=== PATIENT | male | born 1950 | race Caucasian/White ===

== ENCOUNTER 2018-05-22 04:36 | Inpatient (IN) ==
[2018-05-16 15:29] LABS: Appearance,Urine CLEAR; Bilirubin,Urine NEG (NEG); Color,Urine STRAW; Glucose,Urine (UA) NEGATIVE (NEG); Leukocyte Esterase,Urine NEG /uL (NEG); Protein,Urine NEG (NEG); Urine Blood NEG mg/dL (<0.03); Urobilinogen,Urine NEG (NEG)
[2018-05-16 16:14] LABS: Blood Urea Nitrogen 10 mg/dl (8-23)
[2018-05-16 16:41] LABS: Basophils # (Auto) 0 K/mcL (0.0-0.3); Basophils % (Auto) 0.4 % (0.0-2.0); Eosinophils # (Auto) 0.3 K/mcL (0.0-0.7); Eosinophils % (Auto) 2.7 % (0.0-7.0); Granulocytes % (Auto) 54.2 % (38.0-78.0); Lymphocytes # (Auto) 3.3 K/mcL (1.5-4.8); Mean Cell Volume 93.7 fL (80.0-100.0); Mean Corpuscular HGB Conc 33.3 g/dL (31.0-36.0); Mean Corpuscular Hemoglobin 31.2 pg (26.0-34.0); Monocytes # (Auto) 0.6 K/mcL (0.1-0.9); Monocytes % (Auto) 6.7 % (1.0-12.0); Platelet Count 280 K/mcL (140-440); RBC 4.79 M/mcL (4.50-5.90); Red Cell Distribution Width 13.9 % (11.5-14.5)
[2018-05-22] MEDS ORDERED: oxyCODONE 10 MG TAB.ER.12H PO SCH (06:00)
[2018-05-22] MEDS ORDERED: PREGABALIN 75 MG CAPSULE PO SCH (06:00)
[2018-05-22] MEDS ORDERED: ceFAZolin 1 GM VIAL IV SCH (06:00)
[2018-05-22] MEDS ORDERED: CELECOXIB 200 MG CAPSULE PO SCH (06:00)
[2018-05-22] MEDS ORDERED: HEPARIN 20,000 UNIT/ML VIAL IR ONE (06:54)
[2018-05-22] MEDS ORDERED: DEXAMETHASONE 10 MG/ML VIAL IV ONE (07:55)
[2018-05-22] MEDS ORDERED: PROPOFOL 200 MG/20 ML VIAL IV ONE (07:55)
[2018-05-22] MEDS ORDERED: TRANEXAMIC ACID 1,000 MG/10 ML VIAL IV ONE ×2 (07:55→09:06)
[2018-05-22] MEDS ORDERED: ONDANSETRON 4 MG/2 ML VIAL IV ONE (07:55)
[2018-05-22] MEDS ORDERED: ePHEDrine 50 MG/ML AMPUL IV ONE (07:55)
[2018-05-22] MEDS ORDERED: LIDOCAINE HCL/PF 100 MG/5 ML SYRINGE IV ONE (07:55)
[2018-05-22] MEDS ORDERED: MIDAZOLAM 2 MG/2 ML VIAL IV ONE (07:55)
[2018-05-22] MEDS ORDERED: GLYCOPYRROLATE 0.2 MG/ML VIAL IV ONE (07:55)
[2018-05-22] MEDS ORDERED: KETAMINE 100 MG/ML ML IV ONE (07:55)
[2018-05-22] MEDS ORDERED: BISACODYL 10 MG SUPP.RECT PR PRN (09:06)
[2018-05-22] MEDS ORDERED: KETOROLAC 30 MG/ML VIAL IV PRN ×2 (09:06→09:07)
[2018-05-22] MEDS ORDERED: BENZOCAINE/MENTHOL 1 LOZENGE PO PRN ×2 (09:06→09:07)
[2018-05-22] MEDS ORDERED: FLEETS ADULT ENEMA PR PRN (09:06)
[2018-05-22] MEDS ORDERED: ONDANSETRON 4 MG/2 ML VIAL IV PRN ×2 (09:06→09:07)
[2018-05-22] MEDS ORDERED: MAGNESIUM HYDROXIDE 30 ML ORAL.SUSP PO PRN (09:06)
[2018-05-22] MEDS ORDERED: POLYETHYLENE GLYCOL 3350 17 GM PACKET PO PRN (09:06)
--- NOTE | 2018-05-22 09:06 | Brief Operative Note ---
Date of procedure: 05/22/18 Pre-op diagnosis: R hip severe DJD Post-op diagnosis: same Procedure: Right anterior total hip arthroplasty Grafts/Implants: Yes (Depuy 8 std Actis, +1.5 36 delta head, 52 pinnacle cup, neutral altrx liner) Anesthesia: spinal, GLMA Findings: severe arthritis Complications: none Surgeon: Iglesia Bryant Mine Safety Engineer: Jacobo Stoddard Estimated blood loss (cc): 150 Specimens Removed/Pathology: none sent Condition: stable Disposition: PACU
[2018-05-22] MEDS ORDERED: METHOCARBAMOL 1,000 MG/10 ML VIAL IV PRN (09:07)
[2018-05-22] MEDS ORDERED: MEPERIDINE 25 MG/ML SYRINGE IV PRN (09:07)
[2018-05-22] MEDS ORDERED: HYDROmorphone 2 MG/ML VIAL IV PRN (09:07)
[2018-05-22] MEDS ORDERED: NALOXONE HCL 0.4 MG/ML VIAL IV PRN (09:07)
[2018-05-22] MEDS ORDERED: ACETAMINOPHEN 1,000 MG/100 ML BOTTLE IV ONE (09:07)
[2018-05-22] MEDS ORDERED: LACTATED RINGERS 250 ML IV PRN (09:07)
[2018-05-22] MEDS ORDERED: FLUMAZENIL 0.1 MG/ML ML IV PRN (09:07)
[2018-05-22] MEDS ORDERED: fentaNYL 100 MCG/2 ML VIAL IV PRN (09:07)
[2018-05-22] MEDS ORDERED: IPRATROPIUM/ALBUTEROL 3 ML AMPUL.NEB NEB PRN (09:07)
[2018-05-22] MEDS ORDERED: LACTATED RINGERS 1,000 ML IV SCH (09:15)
--- NOTE | 2018-05-22 09:36 | Operative Note ---
DATE OF OPERATION: 05/22/2018 PREOPERATIVE DIAGNOSIS: Right hip severe osteoarthritis. POSTOPERATIVE DIAGNOSIS: Right hip severe osteoarthritis. PROCEDURE PERFORMED: Right anterior approach total hip arthroplasty placing a DePuy Actis size 8 standard offset femoral stem and a +1.5, 36 mm delta ceramic head ball with a 52 Dinosaur cup and a neutral AltrX liner. SURGEON: Iglesia Bryant M.D. FISH DRESSING MACHINE FEEDER: Sea Stoddard PA-C. ANESTHESIA: Spinal plus general. DRAINS: None. SPECIMENS: Femoral head which was discarded. BLOOD LOSS: 150 mL. COMPLICATIONS: None. POSTOPERATIVE CONDITION: Stable. INDICATIONS FOR SURGERY: This is a 67-year-old male with progressive worsening right hip pain. Radiographs showed severe [id number] osteoarthritis. FINDINGS AT SURGERY: As above. Post implantation showed good component position with relatively equal leg lengths. PROCEDURE IN DETAIL: The patient had been seen preoperatively. Informed consent had been obtained after discussion of risks and benefits of surgery. Risks including, but not limited to, bleeding, possibly requiring transfusion; infection, possibly requiring implant removal and prolonged IV antibiotics; injury to nerves, blood vessels and other surrounding structures; anesthetic risks; incomplete or no resolution of symptoms; leg length discrepancy; dislocation; fracture; DVT and pulmonary embolus risks; and the possibility of needing further revision surgery. He understood and wished to proceed. Correct operative site was marked and then patient was given spinal anesthesia. He was then taken to the operating room and LMA general given. He was positioned on the fracture table and then the right hip and groin were carefully prepped and draped in normal sterile fashion, and a time-out was performed verifying patient name, operative site, and plan. A standard anterior approach incision was made with a scalpel through skin and subcutaneous tissue. Hemostasis was obtained with Bovie cautery. Irrisept was irrigated and then a ring retractor was placed. Tensor fascia was incised in line with muscle fibers and then careful blunt dissection taken medial to the muscle belly. Blunt cobra retractors were placed on the superior and inferior neck and then an anterior capsulectomy performed, and the circumflex vessels were coagulated and cut along with the vastus fascia split distally. Corkscrew was placed in the femoral head. Osteotome was used under fluoro to identify our approximate neck cut. We then used an oscillating tip saw to perform our osteotomy, and the femoral head was removed. Acetabulum was exposed and labrum excised circumferentially as well as soft tissue from the floor. We started reaming with a 47 reamer, directly medializing to the tear drop and then increased up to a 51 reamer. We trialed a 51 and did get some press fit. A 3-hole 52 Dinosaur cup was opened. The acetabulum was irrigated with Irrisept, after a minute pulse lavaged with saline, and then using the [id number] we impacted the cup at approximately 40 degrees of inclination and 25 degrees of anteversion. We did get good press-fit, so we went ahead and placed a center hole cover, and a neutral AltrX liner was carefully aligned and impacted. There were no real significant overhanging osteophytes. We went ahead and exposed the proximal femur. Capsule releases were taken out to the tip of the trochanter and along the posterior neck. A box osteotome and awl were used to start our canal entry and then rongeur and rasp to lateralize. We then sequentially broached with the [id number] up to a size 7. This seated below our neck cut. We went ahead and calcar planed. A +1.5 standard offset neck and head trial were placed. Hip was reduced without excessive tension. AP pelvis was verified neutral rotation, and then we took x-rays of the nonoperative and operative hips. Overlay revealed symmetrical leg lengths and offset. We went ahead and redislocated. I did impact with the [id number] the size 7, which went down even below our neck cut, so I went up to a size 8. This sat just a millimeter or so above our neck cut. We opened an 8 standard offset Actis stem. Femoral canal was irrigated with Irrisept, after a minute pulse lavaged with saline. We then impacted the stem with the [id number] and it did seat all the way down on our neck cut. A +1.5 head ball was opened. The stem was carefully cleaned and dried and the head ball impacted with the [id number]. We then reduced the hip. Final fluoro images were taken and saved. We irrigated with Irrisept, after a minute pulse lavaged with saline, and then tensor fascia was closed with two running #1 Vicryl stitches, one running proximal and one running distal. Ring retractor was removed and Irrisept was irrigated again, after a minute pulse lavage, and then fat was tacked to fascia with Vicryl and 2-0 Monocryl for subcutaneous and berlin for skin. Xeroform and sterile dressing were applied. The patient was awakened, extubated, and transferred to recovery in stable condition. KORIN:star Job ID: [id number] Doc ID: [id number] Iglesia Bryant MD
[2018-05-22] MEDS: 0.9 % SODIUM CHLORIDE 1,000 ML IV SCH ×3 (10:06→21:41)
--- NOTE | 2018-05-22 11:53 | XRay Report ---
CLINICAL INFORMATION: Postop total hip prostheses COMPARISON: None. FINDINGS: The right total hip prostheses is anatomically aligned. There is minimal degenerative change both SI joints. Left hip is normal. No osseous abnormality. Soft tissue swelling over the surgical site - as expected IMPRESSION: Negative Interpreted and Authenticated by: Leon Martines 05/22/18
--- NOTE | 2018-05-22 12:19 | XRay Report ---
CLINICAL INFORMATION: Right total hip prosthetic placement - anterior approach COMPARISON: None. FINDINGS: Multiple digital images from an of the OR show right total hip prostheses in various stages of placement. Final film shows prostheses in anatomic alignment without osseous abnormality IMPRESSION: Negative Interpreted and Authenticated by: Leon Martines 05/22/18
[2018-05-22] MEDS: 0.9 % SODIUM CHLORIDE 10 ML SYRINGE IV SCH ×2 (14:03→23:15)
[2018-05-22] MEDS: ceFAZolin 1 GM VIAL IV SCH ×2 (14:34→23:15)
[2018-05-22] MEDS: HYDROCODONE/APAP 7.5/325MG TABLET PO PRN (20:55)
[2018-05-22] MEDS: ASPIRIN 325 MG ENTERIC COATED TABLET PO SCH (20:55)
[2018-05-22] MEDS: DOCUSATE SODIUM 100 MG CAPSULE PO SCH (20:56)
[2018-05-22] MEDS: SENNOSIDES 1 TABLET PO SCH (20:56)
[2018-05-23] MEDS: HYDROCODONE/APAP 7.5/325MG TABLET PO PRN ×4 (01:56→19:36)
[2018-05-23] MEDS: 0.9 % SODIUM CHLORIDE 1,000 ML IV SCH (05:45)
[2018-05-23] MEDS: 0.9 % SODIUM CHLORIDE 10 ML SYRINGE IV SCH ×3 (05:46→20:58)
--- NOTE | 2018-05-23 07:39 | Discharge Summary ---
Providers - Providers Patient information: Note initiated : 05/23/18 at 7:36 am Service Date, if different from initiated Date: [] Patient: Tigre Maldonado 67 y/o M admitted on 05/22/18 for Right Anterior Total Hip Arthroplasty . Chief Complaint: [] Discharge date: 05/23/18 Hospitalization Hospital course: Pt was admitted for a total hip arthroplasty. Pt was admitted on the day of the procedure and discharged on post-op day 1. Pt will take ASA for DVT prophylaxis. Will attend out-pt PT. f/u at [facility] in 2 weeks. Discharge diagnosis: R hip OA Exam - Exam Clean and dry: Yes Weight bearing status: as tolerated Ortho Discharge - YANELI - Patient Instructions Diet: Regular Diet Activity: activity as tolerated Total Hip Protocol: Follow activity instructions as provided by Physical Therapy. Dressing Care: May shower in 2 days - Follow Up Plan Follow Up Appointments: Jacobo Stoddard PA-C [Physician [facility]] - 06/06/18 10:10 am Disposition: Home, Self-Care Prognosis: Good Rehab Potential: Good Overall status at discharge: patient is progressing back to baseline - Orders For Discharge Prescriptions: Aspirin [Ecotrin] 325 mg PO BID #60 tab.ec Hydrocodone/APAP 7.5/325Mg [Dumont 7.5-325Mg] 1 - 2 tab PO Q4HP PRN #90 tab PRN Reason: Pain Level 3-6 Pending Studies Resuscitation Status Full Code Diet Regular Diet Start SunMay 22 907 Hydrocodone Bitart/Acetaminophen (Dumont 7.5/325mg) 0 tab PO Q4HP PRN PRN Reason: PAIN LEVEL 3-6 Last Admin: 05/23/18 01:56 Dose: 2 tab Admin: 05/22/18 20:55 Dose: 1 tab Aspirin (Ecotrin) 325 mg PO BID [facility] Last Admin: 05/22/18 20:55 Dose: 325 mg Docusate Sodium (Colace) 100 mg PO BID [facility] Last Admin: 05/22/18 20:56 Dose: 100 mg Ketorolac Tromethamine (Toradol) 30 mg IV Q6HP PRN PRN Reason: Pain Stop: 05/24/18 09:08 Last Admin: 05/22/18 20:52 Dose: 30 mg Morphine Sulfate (Morphine) 0 mg IV Q1HP PRN PRN Reason: PAIN LEVEL > 6 Last Admin: 05/22/18 23:14 Dose: 4 mg Senna (Senokot) 2 tab PO HS ZACHARY Last Admin: 05/22/18 20:56 Dose: 2 tab Sodium Chloride (Saline Flush) 10 ml IV Q8 ZACHARY Last Admin: 05/23/18 05:46 Dose: 10 ml Admin: 05/22/18 23:15 Dose: 10 ml Admin: 05/22/18 14:03 Dose: Not Given Shift Summary 05/23/18 04:50 Shift Summary by Chuck Boston Pt. alert and oriented x4. No n/v. Bladder scanned > 999 (1800 mls) @ 2350; Connell placed - output 1750; Pt said felt much better; Dumont 7.5 1 tab @ 5 & 2 tabs @ 0156; Up in RM x3 with FWW; Initialized on 05/23/18 04:50 - END OF NOTE
[2018-05-23] MEDS: ASPIRIN 325 MG ENTERIC COATED TABLET PO SCH ×2 (08:45→20:49)
[2018-05-23] MEDS: DOCUSATE SODIUM 100 MG CAPSULE PO SCH ×2 (08:45→20:49)
[2018-05-23] MEDS: LOSARTAN 50 MG TABLET PO SCH (08:45)
[2018-05-23] MEDS: HYDROCHLOROTHIAZIDE 12.5 MG CAPSULE PO SCH (08:46)
[2018-05-23] MEDS ORDERED: LOSARTAN/HCTZ 100/25 TABLET PO SCH (09:00)
[2018-05-23] MEDS ORDERED: PNEUMOCOCCAL 23-VAL P-SAC VAC 0.5 ML VIAL IM ONE (10:00)
[2018-05-23] MEDS: TAMSULOSIN 0.4 MG CAPSULE PO SCH ×2 (14:59→20:49)
[2018-05-23] MEDS: SENNOSIDES 1 TABLET PO SCH (20:49)
[2018-05-24] MEDS: HYDROCODONE/APAP 7.5/325MG TABLET PO PRN ×2 (02:13→07:00)
[2018-05-24] MEDS: 0.9 % SODIUM CHLORIDE 10 ML SYRINGE IV SCH ×2 (04:41→09:39)
[2018-05-24] MEDS: DOCUSATE SODIUM 100 MG CAPSULE PO SCH (09:33)
[2018-05-24] MEDS: HYDROCHLOROTHIAZIDE 12.5 MG CAPSULE PO SCH (09:33)
[2018-05-24] MEDS: ASPIRIN 325 MG ENTERIC COATED TABLET PO SCH (09:34)
[2018-05-24] MEDS: LOSARTAN 50 MG TABLET PO SCH (09:34)
== END 2018-05-24 10:55 | disposition home or self-care (01) | DRG 470 ==
LOC: MEDSUR 04:36
PROVIDERS: ADMIT Orthopaedic Surgery; ATTEND Orthopaedic Surgery

== ENCOUNTER 2022-02-17 16:30 | Inpatient (IN) ==
[2022-02-17] MEDS ORDERED: IOPAMIDOL 100 ML BOTTLE IV ONE (16:31)
--- NOTE | 2022-02-17 16:51 | Emergency Department Note ---
HPI <Valery Alvarez PA-C - Last Filed: 02/17/22 21:10> General Chief complaint: Weakness Stated complaint: Weakness Time Seen by Provider: 02/17/22 16:35 Source: patient Mode of arrival: ambulatory Limitations: no limitations History of Present Illness HPI Narrative: 71-year-old male with history of NICM HFrEF 23% presents from his PCPs office for complaints of headache, nausea but no vomiting, shortness of breath, and hypotension with presenting BP of 87/60 mmHg. Symptom onset approximately 2 days. Patient denies fever/chills/sweats. He describes profound weakness that has had gradual onset over 1 month. He now is feeling exertional shortness of breath with activity. Has had some lightheadedness. States he had dark melanotic stools about 2 weeks ago x2, but this has not returned. No history of GI bleeds. Recently stools have been without hematochezia or melena. He is not on blood thinners. Patient states he has had difficulty urinating for the last 2 days. Denies a history of urinary retention, but states he did see urologist in the past for this. He is not on medications. He denies hematuria or dysuria. No previous history of kidney stones. Does note some bladder pain. States that he did feel some pain in the suprapubic region 2 days ago when his symptoms started. Denies CVA tenderness. Related Data Home Medications Medication Instructions Recorded Confirmed multivitamin [Multiple Vitamins] 1 tab PO QAM 08/07/17 02/18/22 [place]'s wort 300 mg tablet 300 mg PO BID tab 05/25/21 02/18/22 excedrin 1 tab PO PRN PRN 06/24/21 02/18/22 ibuprofen 200 mg PO PRN PRN 06/24/21 02/18/22 losartan 25 mg tablet 25 mg PO QDAY 08/23/21 02/18/22 metoprolol tartrate 25 mg tablet 12.5 mg PO .qod tab 12/21/21 02/18/22 Allergies Allergy/AdvReac Type Severity Reaction Status Date / Time methocarbamol AdvReac Severe Nausea Verified 02/18/22 00:07 omeprazole AdvReac Severe Nausea/vomi Verified 02/18/22 00:07 ting topiramate AdvReac Nausea Verified 02/18/22 00:07 Review of Systems <Valery Alvarez PA-C - Last Filed: 02/17/22 21:10> ROS ROS Narrative: Narrative: All systems ED: reviewed and negative except as stated. 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 (Acute) CHF (NYHA class III, ACC/AHA stage C) (Acute) Nausea (Acute) Hypotension (Acute) Silent aspiration (Chronic) Obstructive sleep apnea (Chronic) COPD (chronic obstructive pulmonary disease) (Chronic) Weight loss of more than 10% body weight (Acute) Chronic bronchitis (Chronic) Chronic pain (Chronic) Pain in right hip (Chronic) Thoracic back pain (Chronic) Upper abdominal pain (Chronic) Diarrhea (Chronic) Headache (Chronic) Cough (Chronic) Malaise and fatigue (Chronic) Duodenitis (Chronic) Blurred vision, bilateral (Chronic) Elevated white blood cell count (Chronic) Degenerative disc disease, cervical (Chronic) Muscle spasms of neck (Chronic) Enlarged heart (Chronic) Loss of appetite (Chronic) Weight loss, unintentional (Chronic) History of COVID-19 (Chronic) Witnessed apneic spells (Chronic) Hypersomnia (Chronic) History of CT scan of abdomen (Chronic 05/24/17) Body mass index 26.0-26.9, adult (Chronic) Smoker (Chronic) Shortness of breath on exertion (Chronic) Shortness of breath at rest (Chronic) Sore throat (Chronic) Nasal congestion (Chronic) Persistent infection (Chronic) Low back pain with radiation (Chronic) Lumbar radiculopathy (Chronic) Sinus congestion (Chronic) Hyponatremia (Chronic) Acute bronchitis with bronchospasm (Chronic) MCC use of drug (Chronic) DDD (degenerative disc disease), lumbosacral (Chronic) Compression fracture of spine (Chronic) Acquired renal cyst (Chronic) Spondylosis of lumbar spine (Chronic) Osteoporosis (Chronic) Balance problems (Chronic) Generalized headaches (Chronic) Dizziness (Chronic) Indigestion (Chronic) Cough (Chronic) Lightheadedness (Chronic) GERD (gastroesophageal reflux disease) (Chronic) Fatigue (Chronic) Appendicitis (Chronic) Left foot pain (Chronic) Tetanus (Chronic) Ankle fracture (Chronic) De Quervain's tenosynovitis, right (Chronic) Hypertension (Chronic) Back pain (Chronic) Bladder distention (Chronic) Medical History Acquired renal cyst Acute bronchitis with bronchospasm Ankle fracture 2005 Appendicitis Back pain Balance problems Bladder distention Blurred vision, bilateral Body mass index 26.0-26.9, adult CHF (NYHA class III, ACC/AHA stage C) Chronic bronchitis Chronic pain 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 History of COVID-[address] scan of abdomen (05/24/17) Hypersomnia Hypertension Hyponatremia mild Hypotension Indigestion Left foot pain Lightheadedness equipment [employer] use of drug Loss of appetite Low back pain with radiation right Lumbar radiculopathy right Malaise and fatigue Muscle spasms of neck Nasal congestion Nausea Nausea and vomiting Nonischemic cardiomyopathy Obstructive sleep apnea Osteoporosis Pain in right hip Persistent infection Shortness of breath at rest Shortness of breath on exertion Silent aspiration Sinus congestion Smoker Sore throat Spondylosis of lumbar spine Tetanus appr 2010 Thoracic back pain Upper abdominal pain Weight loss of more than 10% body weight Weight loss, unintentional Witnessed apneic spells Surgical History History of appendectomy History of foot surgery left History of right hip replacement Family History Father Hypertension Kidney disease Hemophilia Cancer Gout Diabetes Mother Hypertension Kidney disease Cancer Family/Other Coronary artery disease Sibling Diabetes Sibling Gout sibling Kidney disease sibling Other Heart attack Social History Smoking Status: Former smoker Alcohol Intake Frequency: 2+ drinks per day Substance Use: marijuana Exam <Valery Alvarez PA-C - Last Filed: 02/17/22 21:10> Narrative Narrative: General: AOx3, NAD, nontoxic appearing. Pleasant and conversant. HEENT: PERRL, EOMI, normocephalic. Moist mucous membranes. Normal facies and normal dentition. Chest: Symmetric, no pain to palpation Respiratory: Lungs clear to auscultation bilaterally. No respiratory distress. Unlabored breathing. Heart: Regular rate and rhythm, no murmurs/clicks/rubs. Abdomen: Non-tender, Non distended, normal bowel tones. No organomegaly. Extremities: Warm and well perfused. No edema. DP 2+ bilaterally. No venous stasis. Neuro: No focal deficits. Cranial nerves II-XII grossly normal. Skin: Warm dry, no rashes or lesions, no cyanosis. Psych: Normal mood and affect Heme/Lymph: No abnormal bruising General Limitations: no limitations Course <Valery Alvarez PA-C - Last Filed: 02/17/22 21:10> Course Course Narrative: 71-year-old male presents with 1 month of weakness, worse in the last 2 days and now with associated shortness of breath. Reevaluation(s) Reevaluation #1: Basic labs, EKG, chest x-ray, D-dimer, [id number] troponin Patient was unable to completely void. Post residual void was noted to be 750 cc. Reevaluation #2: EKG shows atrial fibrillation with a rate of 61 bpm. There are no acute ST deviations to suggest ischemia. [id number] troponin is undetectable Chest x-ray without infiltrates or pulmonary edema. Cardiomegaly is noted. CBC with leukocytosis of 16,900. Prostate antigen is 9, mildly elevated Reevaluation #3: Discussed with the patient placing a Connell catheter which she is amenable to. We will start him on Flomax prior to discharge him follow-up with urology. Urinalysis shows calcium oxalate crystals, no blood, no infectious markers. Given his symptoms, urinary retention and elevated white blood cell count will order CT of the abdomen and pelvis without contrast to rule out obstructive urinary process. D-dimer is elevated at 1.88, have sent the patient for CTA of the chest to rule out PE Vital Signs Vital signs: Vital Signs Temperature 37.3 C H 02/17/22 16:31 Pulse Rate 71 02/17/22 16:31 Respiratory Rate 22 02/17/22 16:31 Blood Pressure 99/67 02/17/22 16:31 Pulse Oximetry (%) 97 02/17/22 16:31 Temperature 37.3 C H 02/17/22 16:31 Pulse Rate 67 02/17/22 22:31 Respiratory Rate 19 02/17/22 22:31 Blood Pressure 97/74 02/17/22 22:31 Pulse Oximetry (%) 98 02/17/22 22:31 MDM <Valery Alvarez PA-C - Last Filed: 02/17/22 21:10> MDM Narrative Medical decision making narrative: Urinary retention Shortness of breath with elevated D-dimer Weakness Hyponatremia Nausea Patient continues to have nausea in spite of antiemetics. Urinary retention was addressed with a Connell catheter placement. Patient is hyponatremic with ongoing weakness and I have reached out to the hospitalist for admission. Currently the CTA of the chest and CT of the abdomen pelvis are pending. I signed the patient out to Dr. Coyne at change of shift. Please see his note for further details and plan of care. Lab Data Result diagrams: 02/17/22 18:15 02/17/22 18:26 Labs: Lab Results 02/17/22 02/17/22 02/17/22 Range/Units 16:58 16:58 16:58 WBC TNP RBC TNP Hgb TNP Hct TNP MCV TNP MCH TNP MCHC TNP RDW TNP Plt Count TNP MPV TNP Neut % (Auto) TNP Lymph % (Auto) TNP Nicholas % (Auto) TNP Eos % (Auto) TNP Baso % (Auto) TNP Lymph # (Auto) TNP Nicholas # (Auto) TNP Eos # (Auto) TNP Baso # (Auto) TNP Seg Neutrophils % (38-78) % Lymphocytes % (15-49) % Monocytes % (Manual) (1-12) % Eosinophils % (Manual) (0-7) % Absolute Neutrophils TNP Differential Comment TNP Platelet Estimate (Normal) RBC Morphology (Normal) D-Dimer TNP VBG Lactic Acid 1.9 (0.5-2.0) mmol/L Sodium TNP Potassium TNP Chloride TNP Carbon Dioxide TNP Anion Gap TNP BUN TNP Creatinine TNP GFR Calculation TNP Glucose TNP Osmolality (280-300) mOSM/kg Uric Acid (2.5-8.0) mg/dL Calcium TNP Total Bilirubin TNP AST TNP ALT TNP Alkaline Phosphatase TNP NT-Pro-B Natriuret Pep 2886.0 H (<125.0) pg/mL Total Protein TNP Albumin TNP Globulin TNP Albumin/Globulin Ratio TNP Prostate Specific Ag (<6.50) ng/mL Procalcitonin (<0.10) ng/mL Urine Color Urine Appearance (Clear) Urine pH (5.0-9.0) Ur Specific [place] (1.000-1.035) Urine Protein (Negative) mg/dL Urine Glucose (UA) (Negative) mg/dL Urine Ketones (Negative) mg/dL Urine Occult Blood (Negative) mg/dL Urine Nitrate (Negative) Urine Bilirubin (Negative) mg/dL Urine Urobilinogen mg/dL Ur Leukocyte Esterase (Negative) /uL Urine RBC (0-3) /hpf Urine WBC (0-4) /hpf Ur Squamous Epith Cells (0-4) /hpf Calcium Oxalate Crystal (None) /hpf Urine Bacteria (0) /hpf Hyaline Casts (0-2) /lph Urine Mucus (None) /hpf Ur Culture Indicated? Urine Osmolality (80-1000) mOSM/kg Ur Random Sodium mmol/L POC Troponin I 02/17/22 02/17/22 02/17/22 Range/Units 16:58 16:58 16:58 WBC 17.5 H RBC 4.63 Hgb 14.3 Hct 41.3 MCV 89.2 MCH 30.9 MCHC 34.6 RDW 13.5 Plt Count 176 MPV 9.9 Neut % (Auto) Lymph % (Auto) Nicholas % (Auto) Eos % (Auto) Baso % (Auto) Lymph # (Auto) Nicholas # (Auto) Eos # (Auto) Baso # (Auto) Seg Neutrophils % 35 L (38-78) % Lymphocytes % 55 H (15-49) % Monocytes % (Manual) 7 (1-12) % Eosinophils % (Manual) 3 (0-7) % Absolute Neutrophils Differential Comment Platelet Estimate Normal (Normal) RBC Morphology Normal (Normal) D-Dimer VBG Lactic Acid (0.5-2.0) mmol/L Sodium Potassium Chloride Carbon Dioxide Anion Gap BUN Creatinine GFR Calculation Glucose Osmolality (280-300) mOSM/kg Uric Acid (2.5-8.0) mg/dL Calcium Total Bilirubin AST ALT Alkaline Phosphatase NT-Pro-B Natriuret Pep (<125.0) pg/mL Total Protein Albumin Globulin Albumin/Globulin Ratio Prostate Specific Ag 9.30 H (<6.50) ng/mL Procalcitonin 0.54 H (<0.10) ng/mL Urine Color Urine Appearance (Clear) Urine pH (5.0-9.0) Ur Specific [place] (1.000-1.035) Urine Protein (Negative) mg/dL Urine Glucose (UA) (Negative) mg/dL Urine Ketones (Negative) mg/dL Urine Occult Blood (Negative) mg/dL Urine Nitrate (Negative) Urine Bilirubin (Negative) mg/dL Urine Urobilinogen mg/dL Ur Leukocyte Esterase (Negative) /uL Urine RBC (0-3) /hpf Urine WBC (0-4) /hpf Ur Squamous Epith Cells (0-4) /hpf Calcium Oxalate Crystal (None) /hpf Urine Bacteria (0) /hpf Hyaline Casts (0-2) /lph Urine Mucus (None) /hpf Ur Culture Indicated? Urine Osmolality (80-1000) mOSM/kg Ur Random Sodium mmol/L POC Troponin I 02/17/22 02/17/22 02/17/22 Range/Units 17:13 17:32 17:32 WBC RBC Hgb Hct MCV MCH MCHC RDW Plt Count MPV Neut % (Auto) Lymph % (Auto) Nicholas % (Auto) Eos % (Auto) Baso % (Auto) Lymph # (Auto) Nicholas # (Auto) Eos # (Auto) Baso # (Auto) Seg Neutrophils % (38-78) % Lymphocytes % (15-49) % Monocytes % (Manual) (1-12) % Eosinophils % (Manual) (0-7) % Absolute Neutrophils Differential Comment Platelet Estimate (Normal) RBC Morphology (Normal) D-Dimer VBG Lactic Acid (0.5-2.0) mmol/L Sodium Potassium Chloride Carbon Dioxide Anion Gap BUN Creatinine GFR Calculation Glucose Osmolality (280-300) mOSM/kg Uric Acid (2.5-8.0) mg/dL Calcium Total Bilirubin AST ALT Alkaline Phosphatase NT-Pro-B Natriuret Pep (<125.0) pg/mL Total Protein Albumin Globulin Albumin/Globulin Ratio Prostate Specific Ag (<6.50) ng/mL Procalcitonin (<0.10) ng/mL Urine Color Yellow Urine Appearance Hazy A (Clear) Urine pH 5.0 (5.0-9.0) Ur Specific [place] 1.015 (1.000-1.035) Urine Protein Negative (Negative) mg/dL Urine Glucose (UA) Negative (Negative) mg/dL Urine Ketones 5 A (Negative) mg/dL Urine Occult Blood 0.03 (Negative) mg/dL Urine Nitrate Negative (Negative) Urine Bilirubin Negative (Negative) mg/dL Urine Urobilinogen Negative mg/dL Ur Leukocyte Esterase Negative (Negative) /uL Urine RBC 3 (0-3) /hpf Urine WBC 2 (0-4) /hpf Ur Squamous Epith Cells 0 (0-4) /hpf Calcium Oxalate Crystal Few A (None) /hpf Urine Bacteria None (0) /hpf Hyaline Casts 5 H (0-2) /lph Urine Mucus Mod A (None) /hpf Ur Culture Indicated? No Urine Osmolality 597 (80-1000) mOSM/kg Ur Random Sodium 79 mmol/L POC Troponin I 0 02/17/22 02/17/22 02/17/22 Range/Units 17:32 18:15 18:26 WBC 16.3 H RBC 4.67 Hgb 14.5 Hct 40.9 MCV 87.6 MCH 31.0 MCHC 35.5 RDW 13.3 Plt Count 172 MPV 9.5 Neut % (Auto) 33.3 L Lymph % (Auto) 56.1 H Nicholas % (Auto) 9.6 Eos % (Auto) 0.7 Baso % (Auto) 0.3 Lymph # (Auto) 9.16 H Nicholas # (Auto) 1.57 H Eos # (Auto) 0.11 Baso # (Auto) 0.05 Seg Neutrophils % (38-78) % Lymphocytes % (15-49) % Monocytes % (Manual) (1-12) % Eosinophils % (Manual) (0-7) % Absolute Neutrophils 5.44 Differential Comment Platelet Estimate (Normal) RBC Morphology (Normal) D-Dimer VBG Lactic Acid (0.5-2.0) mmol/L Sodium 123 L Potassium 4.1 Chloride 90 L Carbon Dioxide 22 Anion Gap 11.0 BUN 15 Creatinine 0.9 GFR Calculation 85 Glucose 91 Osmolality 261 L (280-300) mOSM/kg Uric Acid 3.7 (2.5-8.0) mg/dL Calcium 8.8 Total Bilirubin 1.5 H AST 21 ALT 15 Alkaline Phosphatase 102 NT-Pro-B Natriuret Pep (<125.0) pg/mL Total Protein 6.5 Albumin 3.5 Globulin 3.0 Albumin/Globulin Ratio 1.2 Prostate Specific Ag (<6.50) ng/mL Procalcitonin (<0.10) ng/mL Urine Color Urine Appearance (Clear) Urine pH (5.0-9.0) Ur Specific [place] (1.000-1.035) Urine Protein (Negative) mg/dL Urine Glucose (UA) (Negative) mg/dL Urine Ketones (Negative) mg/dL Urine Occult Blood (Negative) mg/dL Urine Nitrate (Negative) Urine Bilirubin (Negative) mg/dL Urine Urobilinogen mg/dL Ur Leukocyte Esterase (Negative) /uL Urine RBC (0-3) /hpf Urine WBC (0-4) /hpf Ur Squamous Epith Cells (0-4) /hpf Calcium Oxalate Crystal (None) /hpf Urine Bacteria (0) /hpf Hyaline Casts (0-2) /lph Urine Mucus (None) /hpf Ur Culture Indicated? Urine Osmolality (80-1000) mOSM/kg Ur Random Sodium mmol/L POC Troponin I 02/17/22 Range/Units 18:48 WBC RBC Hgb Hct MCV MCH MCHC RDW Plt Count MPV Neut % (Auto) Lymph % (Auto) Nicholas % (Auto) Eos % (Auto) Baso % (Auto) Lymph # (Auto) Nicholas # (Auto) Eos # (Auto) Baso # (Auto) Seg Neutrophils % (38-78) % Lymphocytes % (15-49) % Monocytes % (Manual) (1-12) % Eosinophils % (Manual) (0-7) % Absolute Neutrophils Differential Comment Platelet Estimate (Normal) RBC Morphology (Normal) D-Dimer 1.88 H VBG Lactic Acid (0.5-2.0) mmol/L Sodium Potassium Chloride Carbon Dioxide Anion Gap BUN Creatinine GFR Calculation Glucose Osmolality (280-300) mOSM/kg Uric Acid (2.5-8.0) mg/dL Calcium Total Bilirubin AST ALT Alkaline Phosphatase NT-Pro-B Natriuret Pep (<125.0) pg/mL Total Protein Albumin Globulin Albumin/Globulin Ratio Prostate Specific Ag (<6.50) ng/mL Procalcitonin (<0.10) ng/mL Urine Color Urine Appearance (Clear) Urine pH (5.0-9.0) Ur Specific [place] (1.000-1.035) Urine Protein (Negative) mg/dL Urine Glucose (UA) (Negative) mg/dL Urine Ketones (Negative) mg/dL Urine Occult Blood (Negative) mg/dL Urine Nitrate (Negative) Urine Bilirubin (Negative) mg/dL Urine Urobilinogen mg/dL Ur Leukocyte Esterase (Negative) /uL Urine RBC (0-3) /hpf Urine WBC (0-4) /hpf Ur Squamous Epith Cells (0-4) /hpf Calcium Oxalate Crystal (None) /hpf Urine Bacteria (0) /hpf Hyaline Casts (0-2) /lph Urine Mucus (None) /hpf Ur Culture Indicated? Urine Osmolality (80-1000) mOSM/kg Ur Random Sodium mmol/L POC Troponin I ED POC Tests ED POC Tests: ALEX - SARS Antigen Negative Discharge Plan Patient/Caregiver Discharge Instructions Pt seen by MANAGER BUSINESS MANAGEMENT/PA only: No Clinical Impression: Acute dyspnea, Hyponatremia, Weakness Patient Disposition: Xfer As Inpt ([facility]) Condition: Fair Discharge Date/Time: 02/17/22 23:02
--- NOTE | 2022-02-17 18:14 | XRay Report ---
HISTORY: Increased weakness, history of congestive heart failure, former smoker FINDINGS: The heart is moderately enlarged but there is no congestive heart failure. There is a small ill-defined opacity at the left costophrenic sulcus may be scar or atelectasis. The lungs are otherwise clear and normally expanded. There is no pleural effusion. The mediastinum and ade are normal. IMPRESSION: Moderate cardiomegaly, without congestive heart failure Interpreted and Authenticated by: Vitaly Mazariegos 02/17/22
[2022-02-17 18:39] LABS: Appearance,Urine HAZY (Clear); Bilirubin,Urine Negative (Negative); Calcium Oxalate Crystals,Urine FEW /hpf; Color,Urine YELLOW; Culture Indicated,Urine No; Glucose,Urine (UA) Negative (Negative); Ketones,Urine 5 mg/dL (Negative); Leukocyte Esterase,Urine Negative /uL (Negative); Mucus,Urine MOD /hpf; Nitrate,Urine Negative (Negative); Protein,Urine Negative (Negative); Specific Gravity,Urine 1.015 (1.000-1.035); Urine Blood 0.03 mg/dL (Negative); Urine Hyaline Cast 5 /lph (0-2); Urine RBC 3 /hpf (0-3); Urine Squamous Epithelial Cell 0 /hpf (0-4); Urine WBC 2 /hpf (0-4); Urobilinogen,Urine Negative
[2022-02-17 18:47] LABS: Basophils # (Auto) 0.05 K/mcL (0.00-0.30); Basophils % (Auto) 0.3 % (0.0-2.0); Eosinophils # (Auto) 0.11 K/mcL (0.00-0.70); Eosinophils % (Auto) 0.7 % (0.0-7.0); Hematocrit 40.9 % (40.1-51.0); Hemoglobin 14.5 g/dL (13.7-17.5); Lymphocytes # (Auto) 9.16 K/mcL (1.50-4.80); Lymphocytes % (Auto) 56.1 % (15.5-49.0); Mean Cell Volume 87.6 fL (80.0-100.0); Mean Corpuscular HGB Conc 35.5 g/dL (31.0-36.0); Mean Platelet Volume 9.5 fL (7.4-10.4); Monocytes # (Auto) 1.57 K/mcL (0.10-0.90); Monocytes % (Auto) 9.6 % (1.0-12.0); Neutrophils % (Auto) 33.3 % (38.0-78.0); Platelet Count 172 K/mcL (140-440); RBC 4.67 M/mcL (4.63-6.08); Red Cell Distribution Width 13.3 % (11.5-14.5); WBC 16.3 K/mcL (4.5-11.0)
[2022-02-17 19:05] LABS: ALT/SGPT 15 U/L (<40); AST/SGOT 21 U/L (<40); Albumin 3.5 gm/dL (3.2-5.2); Albumin/Globulin Ratio 1.2 (1.0-2.3); Alkaline Phosphatase 102 U/L (39-117); Bilirubin,Total 1.5 mg/dL (0.1-1.0); Blood Urea Nitrogen 15 mg/dL (8-23); Calcium 8.8 mg/dL (8.6-10.4); Carbon Dioxide 22 mmol/L (22-30); Chloride 90 mmol/L (96-108); Glomerular Filtration Rate 85; Glucose 91 mg/dL (70-105)
[2022-02-17] MEDS ORDERED: ONDANSETRON 4 MG/2 ML VIAL IV ONE (19:37)
--- NOTE | 2022-02-17 21:25 | Emergency Department Note ---
Course Vital Signs Vital signs: Vital Signs Temperature 37.3 C H 02/17/22 16:31 Pulse Rate 71 02/17/22 16:31 Respiratory Rate 22 02/17/22 16:31 Blood Pressure 99/67 02/17/22 16:31 Pulse Oximetry (%) 97 02/17/22 16:31 Temperature 37.3 C H 02/17/22 16:31 Pulse Rate 61 02/17/22 21:11 Respiratory Rate 16 02/17/22 21:30 Blood Pressure 92/67 02/17/22 21:30 Pulse Oximetry (%) 98 02/17/22 21:11 MDM MDM Narrative Medical decision making narrative: Narrative: Patient seen and evaluated by CORINNA signed out to me as pending admission while awaiting CT angio of the chest result CT of the abdomen per direct radiology shows possible findings of cystitis recommend correlation with urinalysis small left pleural effusion pericardial effusion CT angio of the chest, no evidence of PE, findings compatible with mild COPD and CHF. Did update Dr. Cope who will be down to evaluate and admit the patient Lab Data Result diagrams: 02/17/22 18:15 02/17/22 18:26 Labs: Lab Results 02/17/22 02/17/22 02/17/22 Range/Units 16:58 16:58 16:58 WBC TNP RBC TNP Hgb TNP Hct TNP MCV TNP MCH TNP MCHC TNP RDW TNP Plt Count TNP MPV TNP Neut % (Auto) TNP Lymph % (Auto) TNP [place] % (Auto) TNP Eos % (Auto) TNP Baso % (Auto) TNP Lymph # (Auto) TNP [place] # (Auto) TNP Eos # (Auto) TNP Baso # (Auto) TNP Absolute Neutrophils TNP Differential Comment TNP D-Dimer TNP VBG Lactic Acid 1.9 (0.5-2.0) mmol/L Sodium TNP Potassium TNP Chloride TNP Carbon Dioxide TNP Anion Gap TNP BUN TNP Creatinine TNP GFR Calculation TNP Glucose TNP Uric Acid (2.5-8.0) mg/dL Calcium TNP Total Bilirubin TNP AST TNP ALT TNP Alkaline Phosphatase TNP NT-Pro-B Natriuret Pep 2886.0 H (<125.0) pg/mL Total Protein TNP Albumin TNP Globulin TNP Albumin/Globulin Ratio TNP Prostate Specific Ag (<6.50) ng/mL Urine Color Urine Appearance (Clear) Urine pH (5.0-9.0) Ur Specific [place] (1.000-1.035) Urine Protein (Negative) mg/dL Urine Glucose (UA) (Negative) mg/dL Urine Ketones (Negative) mg/dL Urine Occult Blood (Negative) mg/dL Urine Nitrate (Negative) Urine Bilirubin (Negative) mg/dL Urine Urobilinogen mg/dL Ur Leukocyte Esterase (Negative) /uL Urine RBC (0-3) /hpf Urine WBC (0-4) /hpf Ur Squamous Epith Cells (0-4) /hpf Calcium Oxalate Crystal (None) /hpf Urine Bacteria (0) /hpf Hyaline Casts (0-2) /lph Urine Mucus (None) /hpf Ur Culture Indicated? POC Troponin I 02/17/22 02/17/22 02/17/22 Range/Units 16:58 16:58 17:13 WBC 17.5 H RBC 4.63 Hgb 14.3 Hct 41.3 MCV 89.2 MCH 30.9 MCHC 34.6 RDW 13.5 Plt Count 176 MPV 9.9 Neut % (Auto) Lymph % (Auto) [place] % (Auto) Eos % (Auto) Baso % (Auto) Lymph # (Auto) [place] # (Auto) Eos # (Auto) Baso # (Auto) Absolute Neutrophils Differential Comment D-Dimer VBG Lactic Acid (0.5-2.0) mmol/L Sodium Potassium Chloride Carbon Dioxide Anion Gap BUN Creatinine GFR Calculation Glucose Uric Acid (2.5-8.0) mg/dL Calcium Total Bilirubin AST ALT Alkaline Phosphatase NT-Pro-B Natriuret Pep (<125.0) pg/mL Total Protein Albumin Globulin Albumin/Globulin Ratio Prostate Specific Ag 9.30 H (<6.50) ng/mL Urine Color Urine Appearance (Clear) Urine pH (5.0-9.0) Ur Specific [place] (1.000-1.035) Urine Protein (Negative) mg/dL Urine Glucose (UA) (Negative) mg/dL Urine Ketones (Negative) mg/dL Urine Occult Blood (Negative) mg/dL Urine Nitrate (Negative) Urine Bilirubin (Negative) mg/dL Urine Urobilinogen mg/dL Ur Leukocyte Esterase (Negative) /uL Urine RBC (0-3) /hpf Urine WBC (0-4) /hpf Ur Squamous Epith Cells (0-4) /hpf Calcium Oxalate Crystal (None) /hpf Urine Bacteria (0) /hpf Hyaline Casts (0-2) /lph Urine Mucus (None) /hpf Ur Culture Indicated? POC Troponin I 0 02/17/22 02/17/22 02/17/22 Range/Units 17:32 17:32 18:15 WBC 16.3 H RBC 4.67 Hgb 14.5 Hct 40.9 MCV 87.6 MCH 31.0 MCHC 35.5 RDW 13.3 Plt Count 172 MPV 9.5 Neut % (Auto) 33.3 L Lymph % (Auto) 56.1 H [place] % (Auto) 9.6 Eos % (Auto) 0.7 Baso % (Auto) 0.3 Lymph # (Auto) 9.16 H [place] # (Auto) 1.57 H Eos # (Auto) 0.11 Baso # (Auto) 0.05 Absolute Neutrophils 5.44 Differential Comment D-Dimer VBG Lactic Acid (0.5-2.0) mmol/L Sodium Potassium Chloride Carbon Dioxide Anion Gap BUN Creatinine GFR Calculation Glucose Uric Acid 3.7 (2.5-8.0) mg/dL Calcium Total Bilirubin AST ALT Alkaline Phosphatase NT-Pro-B Natriuret Pep (<125.0) pg/mL Total Protein Albumin Globulin Albumin/Globulin Ratio Prostate Specific Ag (<6.50) ng/mL Urine Color Yellow Urine Appearance Hazy A (Clear) Urine pH 5.0 (5.0-9.0) Ur Specific [place] 1.015 (1.000-1.035) Urine Protein Negative (Negative) mg/dL Urine Glucose (UA) Negative (Negative) mg/dL Urine Ketones 5 A (Negative) mg/dL Urine Occult Blood 0.03 (Negative) mg/dL Urine Nitrate Negative (Negative) Urine Bilirubin Negative (Negative) mg/dL Urine Urobilinogen Negative mg/dL Ur Leukocyte Esterase Negative (Negative) /uL Urine RBC 3 (0-3) /hpf Urine WBC 2 (0-4) /hpf Ur Squamous Epith Cells 0 (0-4) /hpf Calcium Oxalate Crystal Few A (None) /hpf Urine Bacteria None (0) /hpf Hyaline Casts 5 H (0-2) /lph Urine Mucus Mod A (None) /hpf Ur Culture Indicated? No POC Troponin I 02/17/22 02/17/22 Range/Units 18:26 18:48 WBC RBC Hgb Hct MCV MCH MCHC RDW Plt Count MPV Neut % (Auto) Lymph % (Auto) [place] % (Auto) Eos % (Auto) Baso % (Auto) Lymph # (Auto) [place] # (Auto) Eos # (Auto) Baso # (Auto) Absolute Neutrophils Differential Comment D-Dimer 1.88 H VBG Lactic Acid (0.5-2.0) mmol/L Sodium 123 L Potassium 4.1 Chloride 90 L Carbon Dioxide 22 Anion Gap 11.0 BUN 15 Creatinine 0.9 GFR Calculation 85 Glucose 91 Uric Acid (2.5-8.0) mg/dL Calcium 8.8 Total Bilirubin 1.5 H AST 21 ALT 15 Alkaline Phosphatase 102 NT-Pro-B Natriuret Pep (<125.0) pg/mL Total Protein 6.5 Albumin 3.5 Globulin 3.0 Albumin/Globulin Ratio 1.2 Prostate Specific Ag (<6.50) ng/mL Urine Color Urine Appearance (Clear) Urine pH (5.0-9.0) Ur Specific [place] (1.000-1.035) Urine Protein (Negative) mg/dL Urine Glucose (UA) (Negative) mg/dL Urine Ketones (Negative) mg/dL Urine Occult Blood (Negative) mg/dL Urine Nitrate (Negative) Urine Bilirubin (Negative) mg/dL Urine Urobilinogen mg/dL Ur Leukocyte Esterase (Negative) /uL Urine RBC (0-3) /hpf Urine WBC (0-4) /hpf Ur Squamous Epith Cells (0-4) /hpf Calcium Oxalate Crystal (None) /hpf Urine Bacteria (0) /hpf Hyaline Casts (0-2) /lph Urine Mucus (None) /hpf Ur Culture Indicated? POC Troponin I Discharge Plan Patient/Caregiver Discharge Instructions Pt seen by [employer]/PA only: No Clinical Impression: Acute dyspnea, Hyponatremia, Weakness Patient Disposition: Xfer As Inpt ([facility]) Condition: Fair Follow up with: Gualberto Jacome MD [Primary Care Provider] - Prescriptions: No Action multivitamin 1 tab PO QAM 0RF ibuprofen PO 0RF excedrin See Rx Instructions PO .COMPLEX 0RF Rx Instructions: 500mg PO; losartan 25 mg tablet 25 mg PO QDAY 0RF Rx Instructions: 1/2 tablet po qd Keke's wort 300 mg tablet 300 mg PO BID 0RF metoprolol tartrate 25 mg tablet 12.5 mg PO .qod 0RF
[2022-02-17 21:46] LABS: Hematocrit 41.3 % (40.1-51.0); Hemoglobin 14.3 g/dL (13.7-17.5); Mean Cell Volume 89.2 fL (80.0-100.0); Mean Corpuscular HGB Conc 34.6 g/dL (31.0-36.0); Mean Platelet Volume 9.9 fL (7.4-10.4); Platelet Count 176 K/mcL (140-440); RBC 4.63 M/mcL (4.63-6.08); Red Cell Distribution Width 13.5 % (11.5-14.5); WBC 17.5 K/mcL (4.5-11.0)
--- NOTE | 2022-02-17 21:49 | Internal Med History&Physical ---
HPI History of Present Illness Patient information: Note initiated : 02/17/22 at 9:47 pm Service Date, if different from initiated Date: [] Patient: Tigre Maldonado 71 y/o M admitted on for Weakness. Chief Complaint: [] History of present illness: Mr. Maldonado is a 71 year old M Presents the ED from his PCPs office for generalized weakness and was found to be mildly hypotensive with nausea but no vomiting.RAMOS's with chronicity and chronic dyspnea. Blood pressure in ED was 87/60 initially. He has had decreased urine output. Mild lightheadedness. No bloody stools. Symptoms have been going on for several days, but says weakness over 1 month. A bladder scan for 750 cc in the ED and a Sorto catheter was placed. And Flomax started. He does have a history of hyponatremia in the 120s and here in the ED he was seem to be a little bit lower at 123. He has a leukocytosis of 16 but is afebrile. Denies coughing. Patient having persistent nausea. Elevated D-dimer, per verbal from ED physician CTA with no PE. Patient has a history of atrial fibrillation and is on a beta-janeen but is not on anticoagulation and states has been no discussion of anticoagulation. Patient has history of COPD not on O2 or IH's and obstructive sleep apnea with cpap and dysphagia as well as severe systolic heart failure and right heart failure and chronic shortness of breath. Urinalysis unremarkable for infection but with hyaline casts indicative for dehydration. Review of Systems: Pertinent positives as above. Denies fever/chills/vomiting/chest or abdominal pain/diarrhea. Remaining 10 point review of system reviewed negative. 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 (Acute) CHF (NYHA class III, ACC/AHA stage C) (Acute) Nausea (Acute) Hypotension (Acute) Silent aspiration (Chronic) Obstructive sleep apnea (Chronic) COPD (chronic obstructive pulmonary disease) (Chronic) Weight loss of more than 10% body weight (Acute) Chronic bronchitis (Chronic) Chronic pain (Chronic) Pain in right hip (Chronic) Thoracic back pain (Chronic) Upper abdominal pain (Chronic) Diarrhea (Chronic) Headache (Chronic) Cough (Chronic) Malaise and fatigue (Chronic) Duodenitis (Chronic) Blurred vision, bilateral (Chronic) Elevated white blood cell count (Chronic) Degenerative disc disease, cervical (Chronic) Muscle spasms of neck (Chronic) Enlarged heart (Chronic) Loss of appetite (Chronic) Weight loss, unintentional (Chronic) History of COVID-19 (Chronic) Witnessed apneic spells (Chronic) Hypersomnia (Chronic) History of CT scan of abdomen (Chronic 05/24/17) Body mass index 26.0-26.9, adult (Chronic) Smoker (Chronic) Shortness of breath on exertion (Chronic) Shortness of breath at rest (Chronic) Sore throat (Chronic) Nasal congestion (Chronic) Persistent infection (Chronic) Low back pain with radiation (Chronic) Lumbar radiculopathy (Chronic) Sinus congestion (Chronic) Hyponatremia (Chronic) Acute bronchitis with bronchospasm (Chronic) salvage determiner use of drug (Chronic) DDD (degenerative disc disease), lumbosacral (Chronic) Compression fracture of spine (Chronic) Acquired renal cyst (Chronic) Spondylosis of lumbar spine (Chronic) Osteoporosis (Chronic) Balance problems (Chronic) Generalized headaches (Chronic) Dizziness (Chronic) Indigestion (Chronic) Cough (Chronic) Lightheadedness (Chronic) GERD (gastroesophageal reflux disease) (Chronic) Fatigue (Chronic) Appendicitis (Chronic) Left foot pain (Chronic) Tetanus (Chronic) Ankle fracture (Chronic) De Quervain's tenosynovitis, right (Chronic) Hypertension (Chronic) Back pain (Chronic) Bladder distention (Chronic) Medical History Acquired renal cyst Acute bronchitis with bronchospasm Ankle fracture 2006 Appendicitis Back pain Balance problems Bladder distention Blurred vision, bilateral Body mass index 26.0-26.9, adult CHF (NYHA class III, ACC/AHA stage C) Chronic bronchitis Chronic pain 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 History of COVID-[address] scan of abdomen (05/24/17) Hypersomnia Hypertension Hyponatremia mild Hypotension Indigestion Left foot pain Lightheadedness nursing home use of drug Loss of appetite Low back pain with radiation right Lumbar radiculopathy right Malaise and fatigue Muscle spasms of neck Nasal congestion Nausea Nausea and vomiting Nonischemic cardiomyopathy Obstructive sleep apnea Osteoporosis Pain in right hip Persistent infection Shortness of breath at rest Shortness of breath on exertion Silent aspiration Sinus congestion Smoker Sore throat Spondylosis of lumbar spine Tetanus appr 2010 Thoracic back pain Upper abdominal pain Weight loss of more than 10% body weight Weight loss, unintentional Witnessed apneic spells Surgical History History of appendectomy History of foot surgery left History of right hip replacement Family History Father Hypertension Kidney disease Hemophilia Cancer Gout Diabetes Mother Hypertension Kidney disease Cancer Family/Other Coronary artery disease Sibling Diabetes Sibling Gout sibling Kidney disease sibling Other Heart attack Social History marital status: occupational status: retired smoking status: Former smoker alcohol intake frequency: 2+ drinks per day substance use type: marijuana MEDS/ALLERGIES Home Medications and Allergies Home Medications Medication Instructions Recorded Confirmed Type multivitamin [Multiple Vitamins] 1 tab PO QAM 08/07/17 02/17/22 History Keke's wort 300 mg tablet 300 mg PO BID tab 05/25/21 02/17/22 History excedrin See Rx Instructions PO .COMPLEX 06/24/21 02/17/22 History ibuprofen PO 06/24/21 02/17/22 History losartan 25 mg tablet 25 mg PO QDAY 08/23/21 02/17/22 History metoprolol tartrate 25 mg tablet 12.5 mg PO .qod tab 12/21/21 02/17/22 History Allergies Allergy/AdvReac Type Severity Reaction Status Date / Time methocarbamol AdvReac Unknown Muscle Verified 02/17/22 15:51 aches omeprazole AdvReac Unknown Nausea/vomi Verified 02/17/22 15:51 ting topiramate AdvReac Dizziness Verified 02/17/22 15:51 EXAM Constitutional Vitals: Temp Pulse Resp BP Pulse Ox 99.1 F H 61 16 92/67 98 02/17/22 16:31 02/17/22 21:11 02/17/22 21:30 02/17/22 21:30 02/17/22 21:11 Exam: General: Alert, Awake, No acute Distress Eyes/N/T: EOMI, PERRL, dry MM Head/Neck: neck supple, normocephalic atraumatic, no JVD CV: Irregular irregular, No murmurs, normal s1/s2 Pulm: Minimal bibasilar Rales L>R, no wheezing/rhonchi Abd: soft, nontender, +BS x4 Ext: no clubbing/cyanosis/edema Neuro: Alert, no focal deficits, moves all extremities, CN 2-12 grossly intact, symmetrical strength b/l upper/lower, sensations intact b/l upper/lower Skin: warm/dry DATA Data Completed and Pending Labs: Labs from last 24 hours 02/17/22 02/17/22 02/17/22 18:48 18:26 18:15 WBC 16.3 H RBC 4.67 Hgb 14.5 Hct 40.9 MCV 87.6 MCH 31.0 MCHC 35.5 RDW 13.3 Plt Count 172 MPV 9.5 Neut % (Auto) 33.3 L Lymph % (Auto) 56.1 H [place] % (Auto) 9.6 Eos % (Auto) 0.7 Baso % (Auto) 0.3 Lymph # (Auto) 9.16 H [place] # (Auto) 1.57 H Eos # (Auto) 0.11 Baso # (Auto) 0.05 Absolute Neutrophils 5.44 Differential Comment Platelet Estimate RBC Morphology D-Dimer 1.88 H VBG Lactic Acid Sodium 123 L Potassium 4.1 Chloride 90 L Carbon Dioxide 22 Anion Gap 11.0 BUN 15 Creatinine 0.9 GFR Calculation 85 Glucose 91 Osmolality Uric Acid Calcium 8.8 Total Bilirubin 1.5 H AST 21 ALT 15 Alkaline Phosphatase 102 NT-Pro-B Natriuret Pep Total Protein 6.5 Albumin 3.5 Globulin 3.0 Albumin/Globulin Ratio 1.2 Prostate Specific Ag Urine Color Urine Appearance Urine pH Ur Specific [place] Urine Protein Urine Glucose (UA) Urine Ketones Urine Occult Blood Urine Nitrate Urine Bilirubin Urine Urobilinogen Ur Leukocyte Esterase Urine RBC Urine WBC Ur Squamous Epith Cells Calcium Oxalate Crystal Urine Bacteria Hyaline Casts Urine Mucus Ur Culture Indicated? Urine Osmolality Ur Random Sodium POC Troponin I 02/17/22 02/17/22 02/17/22 17:32 17:32 17:32 WBC RBC Hgb Hct MCV MCH MCHC RDW Plt Count MPV Neut % (Auto) Lymph % (Auto) [place] % (Auto) Eos % (Auto) Baso % (Auto) Lymph # (Auto) [place] # (Auto) Eos # (Auto) Baso # (Auto) Absolute Neutrophils Differential Comment Platelet Estimate RBC Morphology D-Dimer VBG Lactic Acid Sodium Potassium Chloride Carbon Dioxide Anion Gap BUN Creatinine GFR Calculation Glucose Osmolality Pending Uric Acid Pending Calcium Total Bilirubin AST ALT Alkaline Phosphatase NT-Pro-B Natriuret Pep Total Protein Albumin Globulin Albumin/Globulin Ratio Prostate Specific Ag Urine Color Yellow Urine Appearance Hazy A Urine pH 5.0 Ur Specific [place] 1.015 Urine Protein Negative Urine Glucose (UA) Negative Urine Ketones 5 A Urine Occult Blood 0.03 Urine Nitrate Negative Urine Bilirubin Negative Urine Urobilinogen Negative Ur Leukocyte Esterase Negative Urine RBC 3 Urine WBC 2 Ur Squamous Epith Cells 0 Calcium Oxalate Crystal Few A Urine Bacteria None Hyaline Casts 5 H Urine Mucus Mod A Ur Culture Indicated? No Urine Osmolality Pending Ur Random Sodium Pending POC Troponin I 02/17/22 02/17/22 02/17/22 17:13 16:58 16:58 WBC 17.5 H RBC 4.63 Hgb 14.3 Hct 41.3 MCV 89.2 MCH 30.9 MCHC 34.6 RDW 13.5 Plt Count 176 MPV 9.9 Neut % (Auto) Lymph % (Auto) [place] % (Auto) Eos % (Auto) Baso % (Auto) Lymph # (Auto) [place] # (Auto) Eos # (Auto) Baso # (Auto) Absolute Neutrophils Differential Comment Platelet Estimate Pending RBC Morphology Pending D-Dimer VBG Lactic Acid Sodium Potassium Chloride Carbon Dioxide Anion Gap BUN Creatinine GFR Calculation Glucose Osmolality Uric Acid Calcium Total Bilirubin AST ALT Alkaline Phosphatase NT-Pro-B Natriuret Pep Total Protein Albumin Globulin Albumin/Globulin Ratio Prostate Specific Ag 9.30 H Urine Color Urine Appearance Urine pH Ur Specific [place] Urine Protein Urine Glucose (UA) Urine Ketones Urine Occult Blood Urine Nitrate Urine Bilirubin Urine Urobilinogen Ur Leukocyte Esterase Urine RBC Urine WBC Ur Squamous Epith Cells Calcium Oxalate Crystal Urine Bacteria Hyaline Casts Urine Mucus Ur Culture Indicated? Urine Osmolality Ur Random Sodium POC Troponin I 0 02/17/22 02/17/22 02/17/22 16:58 16:58 16:58 WBC TNP RBC TNP Hgb TNP Hct TNP MCV TNP MCH TNP MCHC TNP RDW TNP Plt Count TNP MPV TNP Neut % (Auto) TNP Lymph % (Auto) TNP [place] % (Auto) TNP Eos % (Auto) TNP Baso % (Auto) TNP Lymph # (Auto) TNP [place] # (Auto) TNP Eos # (Auto) TNP Baso # (Auto) TNP Absolute Neutrophils TNP Differential Comment TNP Platelet Estimate RBC Morphology D-Dimer TNP VBG Lactic Acid 1.9 Sodium TNP Potassium TNP Chloride TNP Carbon Dioxide TNP Anion Gap TNP BUN TNP Creatinine TNP GFR Calculation TNP Glucose TNP Osmolality Uric Acid Calcium TNP Total Bilirubin TNP AST TNP ALT TNP Alkaline Phosphatase TNP NT-Pro-B Natriuret Pep 2886.0 H Total Protein TNP Albumin TNP Globulin TNP Albumin/Globulin Ratio TNP Prostate Specific Ag Urine Color Urine Appearance Urine pH Ur Specific [place] Urine Protein Urine Glucose (UA) Urine Ketones Urine Occult Blood Urine Nitrate Urine Bilirubin Urine Urobilinogen Ur Leukocyte Esterase Urine RBC Urine WBC Ur Squamous Epith Cells Calcium Oxalate Crystal Urine Bacteria Hyaline Casts Urine Mucus Ur Culture Indicated? Urine Osmolality Ur Random Sodium POC Troponin I A/P Narrative A/P Narrative: A: *Acute on chronic hyponatremia: *Hypotension: Likely hypovolemic compounded by blood pressure medications *Volume depletion: *Urinary retention likely 2/2 BPH: Sorto placed in the ED *Generalized weakness/deconditioning/poor appetite: *Leukocytosis: Suspect reactive, rule out infectious -Afebrile, no bandemia *h/o systolic(30-35%) CHF w/WMA and reduced RV systolic fxn: Follows with cardiology -does not appear decompensated *COPD (not on O2): Follows with Dr. Sandra *OSAw/cpap : *Oropharyngeal Dysphagia: is supposed to see ST in February *HTN: hypotension no admit, on Lopressor/losartan. monitor P: -gentle IVF, f/u sodium, monitor UOP/fluid balance closely -hyponatremia w/u pending -maintain sorto, Flomax started, follow-up with urology -Follow-up WBC and BC -hold home BP meds for now -dysphagia diet, ST eval -cont home cpap -Home medication reconciliation -PT/OT -ppx: Lovenox DNR Time Spent With Patient Time: Total time spent is greater than 50% in coordination of care (as documented) at patient's floor/unit and/or counseling patient: Total time spent with greater than 50% in coordination of care (as documented) at patient's floor/unit and/or counseling patient:: Greater than 70 minutes
[2022-02-17 21:56] LABS: Uric Acid 3.7 mg/dL (2.5-8.0)
[2022-02-17 22:21] LABS: Osmolality,Urine 597 mOSM/kg (80-1000)
[2022-02-17 22:23] LABS: Sodium, Urine Random 79 mmol/L
[2022-02-17 22:27] LABS: Eosinophils % (Manual) 3 % (0-7); Lymphocytes % 55 % (15-49); Monocytes % (Manual) 7 % (1-12); Platelet Estimate NORMAL (Normal); RBC Morphology NORMAL (Normal); Segmented Neutrophils % 35 % (38-78)
[2022-02-17] MEDS ORDERED: ONDANSETRON 4 MG/2 ML VIAL IV PRN (23:07)
[2022-02-17] MEDS ORDERED: MAGNESIUM SULFATE 2 GM/50 ML BAG IV PRN (23:07)
[2022-02-17] MEDS ORDERED: SENNOSIDES 1 TABLET PO PRN (23:07)
[2022-02-17] MEDS ORDERED: POTASSIUM CHLORIDE 20 MEQ TABLET PO PRN ×2 (23:07)
[2022-02-17] MEDS ORDERED: POTASSIUM CHLORIDE 40 MEQ in DEXTROSE 5% IN WATER 500 ML IV PRN (23:07)
[2022-02-17] MEDS ORDERED: 0.9 % SODIUM CHLORIDE 1,000 ML IV ONE (23:07)
[2022-02-17] MEDS ORDERED: ACETAMINOPHEN 325 MG TABLET PO PRN (23:07)
[2022-02-17] MEDS ORDERED: IPRATROPIUM/ALBUTEROL 3 ML AMPUL.NEB NEB PRN (23:07)
[2022-02-17] MEDS ORDERED: POLYETHYLENE GLYCOL 3350 17 GM PACKET PO PRN (23:07)
[2022-02-17] MEDS ORDERED: METOCLOPRAMIDE 10 MG/2 ML VIAL IV PRN (23:07)
[2022-02-17] MEDS ORDERED: PROMETHAZINE 25 MG/ML VIAL IV PRN (23:07)
[2022-02-17] MEDS ORDERED: TAMSULOSIN 0.4 MG CAPSULE PO ONE (23:19)
[2022-02-17] MEDS ORDERED: FAMOTIDINE 20 MG TABLET PO ONE (23:20)
[2022-02-17] MEDS: TAMSULOSIN 0.4 MG CAPSULE PO SCH (23:20)
[2022-02-17] MEDS: FAMOTIDINE 20 MG TABLET PO SCH (23:21)
[2022-02-18] MEDS: 0.9 % SODIUM CHLORIDE 10 ML SYRINGE IV SCH ×3 (05:13→20:19)
[2022-02-18 06:46] LABS: Hematocrit 38.5 % (40.1-51.0); Hemoglobin 13.3 g/dL (13.7-17.5); Mean Cell Volume 87.5 fL (80.0-100.0); Mean Corpuscular HGB Conc 34.5 g/dL (31.0-36.0); Mean Platelet Volume 9.8 fL (7.4-10.4); Platelet Count 157 K/mcL (140-440); Red Cell Distribution Width 13.2 % (11.5-14.5); WBC 12.6 K/mcL (4.5-11.0)
[2022-02-18 07:15] LABS: ALT/SGPT 13 U/L (<40); AST/SGOT 17 U/L (<40); Albumin 3.4 gm/dL (3.2-5.2); Albumin/Globulin Ratio 1.3 (1.0-2.3); Alkaline Phosphatase 91 U/L (39-117); Bilirubin,Direct 0.4 mg/dL (<0.3); Bilirubin,Total 1.3 mg/dL (0.1-1.0); Blood Urea Nitrogen 10 mg/dL (8-23); Calcium 8.3 mg/dL (8.6-10.4); Carbon Dioxide 22 mmol/L (22-30); Chloride 90 mmol/L (96-108); Globulin 2.7 gm/dL (2.2-3.7); Glomerular Filtration Rate 89; Glucose 83 mg/dL (70-105); Lactate Dehydrogenase 173 U/L (135-225); Phosphorous 2.3 mg/dL (2.5-4.5); Triglycerides 85 mg/dL (<150); Uric Acid 3.6 mg/dL (2.5-8.0)
[2022-02-18 07:38] LABS: Band Neutrophils % 1 % (0-10); Eosinophils % (Manual) 2 % (0-7); Lymphocytes % 54 % (15-49); Monocytes % (Manual) 3 % (1-12); Platelet Estimate NORMAL (Normal); RBC Morphology NORMAL (Normal); Segmented Neutrophils % 40 % (38-78)
--- NOTE | 2022-02-18 08:04 | Cat Scan Report ---
History: Urinary retention, evaluate for kidney stones TECHNIQUE: The abdomen was imaged without contrast in axial plane at 2.5 mm intervals from above the diaphragm through the symphysis pubis. Sagittal and coronal reformats were created. The radiation exposure was limited using dose reduction technology. FINDINGS: In the of the lateral basal segment left lower lobe there is a 4 mm noncalcified nodule. This is a granuloma which has not changed since the prior CT done on 03/09/21. There are a couple small bulla in the right middle lobe. The heart is mildly enlarged and there is a small pericardial effusion. A very small layering left-side pleural effusion is present and there is minor atelectasis in the posterior basal segment of the left lower lobe. Evaluation of the abdominal organs without contrast is somewhat limited. The liver and spleen are normal in size and homogeneous. The gallbladder appears normal with no calcified stones or thickening of the wall. The bile ducts are nondilated. No abnormality is seen within the pancreas. The adrenals are normal and symmetric. There is a 1.5 cm cortical cyst laterally in the middle third of the right kidney and a smaller 5 mm exophytic cyst inferiorly and medially in the lower pole. In the left kidney there is an exophytic simple cyst anterolaterally in the upper half which measures 1.6 cm. The kidneys are otherwise normal with no kidney stone or hydronephrosis. Both ureters are decompressed. There is a Connell catheter within the bladder. The bladder still contains a moderate amount of urine. Bladder is partially collapsed. There is mild generalized thickening of the bladder wall. There is some air within the lumen of the bladder which is most likely due to the Connell. Patient has a right metal hip prosthesis creating significant beam hardening artifacts in the lower pelvis. The prostate is grossly normal in size. There is some retained barium in the distal large bowel from a prior study. The small and large intestine are otherwise normal without evidence of obstruction or inflammation. No diverticula are seen. Patient has no ascites. There is no adenopathy. 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 Grade 1 spondylolisthesis is present at L5-S1. There is severe disc space narrowing at T12-L1, L2-3 and L5-S1 and moderate narrowing at L3-4. IMPRESSION: Connell catheter in the bladder. The bladder is not empty. Either the Connell was clamped or it is occluded. Mild circumferential thickening of the bladder wall. This is a nonspecific finding in a partially collapsed bladder. This is more likely due to chronic bladder outlet obstruction rather than diffuse cystitis. Stable cysts in both kidneys, unchanged from 03/09/21 Degenerative changes at multiple levels in the lumbar spine Cardiomegaly Small pleural and pericardial effusions Interpreted and Authenticated by: Vitaly Mazariegos 02/18/22
[2022-02-18] MEDS: ENOXAPARIN 40 MG/0.4 ML SYRINGE SQ SCH (08:10)
[2022-02-18] MEDS: DOCUSATE SODIUM 100 MG CAPSULE PO SCH ×2 (08:12→20:19)
[2022-02-18] MEDS: FAMOTIDINE 20 MG TABLET PO SCH ×2 (08:13→20:32)
--- NOTE | 2022-02-18 08:49 | Cat Scan Report ---
History: Short of breath with elevated serum d-dimer level, weakness TECHNIQUE: Following injection of intravenous nonionic contrast the patient was scanned during the arterial phase from the thoracic inlet through the diaphragms. Sagittal, coronal and axial MIPS images were created. FINDINGS: The pulmonary arteries are normal with no intraluminal filling defects. The heart is moderately enlarged. There is a very small pericardial effusion. Several calcified plaques are present in the coronary arteries. The aorta is normal in caliber. A small left-sided pleural effusion is present. Adjacent to this there is mild atelectasis in the posterior basal segment of the left lower lobe. Mild emphysema is present in both lungs. There is a well-circumscribed intrapleural 7 x 10 mm nodule located centrally in the right lung on axial image #63. This is unchanged from the prior CT performed on 06/10/21. No lung mass has developed. There is no evidence of pneumonia. There are small lymph nodes in the mediastinum near the marylin. They measure up to 1.3 cm in diameter. IMPRESSION: No evidence of pulmonary emboli Mild emphysema Moderate cardiomegaly Interpreted and Authenticated by: Vitaly Mazariegos 02/18/22
--- NOTE | 2022-02-18 09:12 | Internal Med Progress Note ---
SUBJECTIVE Subjective Patient information: Note initiated : 02/18/22 at 9:01 am Service Date, if different from initiated Date: [] Patient: Tigre Maldonado 71 y/o M admitted on 02/17/22 for Weakness. Chief Complaint: [] Interval history: History of present illness: Mr. Maldonado is a 71 year old M Presents the ED from his PCPs office for generalized weakness and was found to be mildly hypotensive with nausea but no vomiting.RAMOS's with chronicity and chronic dyspnea. Blood pressure in ED was 87/60 initially. He has had decreased urine output. Mild lightheadedness. No bloody stools. Symptoms have been going on for several days, but says weakness over 1 month. A bladder scan for 750 cc in the ED and a Sorto catheter was placed. And Flomax started. He does have a history of hyponatremia in the 120s and here in the ED he was seem to be a little bit lower at 123. He has a leukocytosis of 16 but is afebrile. Denies coughing. Patient having persistent nausea. Elevated D-dimer, per verbal from ED physician CTA with no PE. Patient has a history of atrial fibrillation and is on a beta-janeen but is not on anticoagulation and states has been no discussion of anticoagulation. Patient has history of COPD not on O2 or IH's and obstructive sleep apnea with cpap and dysphagia as well as severe systolic heart failure and right heart failure and chronic shortness of breath. Urinalysis unremarkable for infection but with hyaline casts indicative for dehydration. 02/18 Patient still feels weak. Sodium essentially unchanged. Pending TSH and cortisol for further work-up. Leukocytosis improved without antibiotics although procalcitonin is elevated, follow-up. Review of Systems: denies headache/fever/chills/nausea/vomiting/chest or abdominal pain/cough/dyspnea/diarrhea. Otherwise see above. Constitutional Vitals: Vital Signs Temp Pulse Resp BP Pulse Ox 98.4 F 88 16 88/58 94 02/18/22 07:00 02/18/22 07:00 02/18/22 07:00 02/18/22 07:00 02/18/22 07:00 Period Temp Pulse Resp BP Sys/Paul Pulse Ox Last 24 Hr 98.2 F-99.1 F 55-128 84-107/58-87 92-99 Intake and Output 04/29/22 04/30/22 04/30/22 21:59 05:59 13:59 Intake Total 200 Output Total 350 Balance -150 Weight 68.039 kg 66.996 kg Intake & Output: Intake & Output 02/17/22 02/18/22 02/18/22 21:59 05:59 13:59 Intake Total 200 Output Total 350 Balance -150 Weight 68.039 kg 66.996 kg Intake: Oral 200 Output: Urine Catheter Amount 350 Other: Urine Appearance Clear Uretheral (Sorto) Clear Clear Clear Urine Color Bright Yellow Uretheral (Sorto) Bright Yellow Bright Yellow Bright Yellow # Bowel Movements 0 Exam: General: Alert, Awake, No acute Distress Eyes/N/T: EOMI, Head/Neck: neck supple, CV: Irregular irregular, No murmurs, Pulm: Clear b/l although very mildly diminished on right, no wheezing/rhonchi Abd: soft, nontender, +BS x4 Ext: no clubbing/cyanosis/edema Neuro: Alert, no focal deficits, moves all extremities, Skin: warm/dry OBJ DATA Labs CBC & Chem 7: 02/18/22 05:32 02/18/22 05:32 Labs: Abnormal Lab Results 02/18/22 02/18/22 02/17/22 05:32 05:32 18:48 WBC 12.6 H RBC 4.40 L Hgb 13.3 L Hct 38.5 L Neut % (Auto) Lymph % (Auto) Lymph # (Auto) [place] # (Auto) Seg Neutrophils % Lymphocytes % 54 H D-Dimer 1.88 H Sodium 124 L Chloride 90 L Osmolality Calcium 8.3 L Phosphorus 2.3 L Total Bilirubin 1.3 H Direct Bilirubin 0.4 H NT-Pro-B Natriuret Pep Prostate Specific Ag Procalcitonin Urine Appearance Urine Ketones Calcium Oxalate Crystal Hyaline Casts Urine Mucus 02/17/22 02/17/22 02/17/22 18:26 18:15 17:32 WBC 16.3 H RBC Hgb Hct Neut % (Auto) 33.3 L Lymph % (Auto) 56.1 H Lymph # (Auto) 9.16 H [place] # (Auto) 1.57 H Seg Neutrophils % Lymphocytes % D-Dimer Sodium 123 L Chloride 90 L Osmolality 261 L Calcium Phosphorus Total Bilirubin 1.5 H Direct Bilirubin NT-Pro-B Natriuret Pep Prostate Specific Ag Procalcitonin Urine Appearance Urine Ketones Calcium Oxalate Crystal Hyaline Casts Urine Mucus 02/17/22 02/17/22 02/17/22 17:32 16:58 16:58 WBC 17.5 H RBC Hgb Hct Neut % (Auto) Lymph % (Auto) Lymph # (Auto) [place] # (Auto) Seg Neutrophils % 35 L Lymphocytes % 55 H D-Dimer Sodium Chloride Osmolality Calcium Phosphorus Total Bilirubin Direct Bilirubin NT-Pro-B Natriuret Pep Prostate Specific Ag Procalcitonin 0.54 H Urine Appearance Hazy A Urine Ketones 5 A Calcium Oxalate Crystal Few A Hyaline Casts 5 H Urine Mucus Mod A 02/17/22 02/17/22 16:58 16:58 WBC RBC Hgb Hct Neut % (Auto) Lymph % (Auto) Lymph # (Auto) [place] # (Auto) Seg Neutrophils % Lymphocytes % D-Dimer Sodium Chloride Osmolality Calcium Phosphorus Total Bilirubin Direct Bilirubin NT-Pro-B Natriuret Pep 2886.0 H Prostate Specific Ag 9.30 H Procalcitonin Urine Appearance Urine Ketones Calcium Oxalate Crystal Hyaline Casts Urine Mucus Meds: Medications Acetaminophen (Acetaminophen 325 Mg Tablet) 650 mg PO Q6HP PRN; Protocol PRN Reason: Per Pain Protocol/Fever > 101 Last Admin: 02/18/22 08:11 Dose: 650 mg Documented by: Albuterol/Ipratropium (Ipratropium/Albuterol 3 Ml Ampul.Neb) 3 ml NEB Q4HP PRN PRN Reason: Shortness Of Breath Docusate Sodium (Docusate Sodium 100 Mg Capsule) 100 mg PO BID [facility] Last Admin: 02/18/22 08:12 Dose: 100 mg Documented by: Enoxaparin Sodium (Enoxaparin 40 Mg/0.4 Ml Syringe) 40 mg SQ DAILY [facility] Last Admin: 02/18/22 08:10 Dose: 40 mg Documented by: Famotidine (Famotidine 20 Mg Tablet) 20 mg PO BID [facility] Last Admin: 02/18/22 08:13 Dose: 20 mg Documented by: Potassium Chloride 40 meq/ (Dextrose) 520 mls @ 130 mls/hr IV UD PRN PRN Reason: Potassium < 3 Magnesium Sulfate (Magnesium Sulfate) 2 gm in 50 mls @ 50 mls/hr IV UD PRN PRN Reason: Magnesium </= 1.6 Sodium Chloride (Sodium Chloride 0.9%) 1,000 mls @ 75 mls/hr IV .[id number] Stop: 02/18/22 12:26 Last Admin: 02/17/22 23:21 Dose: 75 mls/hr Documented by: Metoclopramide HCl (Metoclopramide 10 Mg/2 Ml Vial) 10 mg IV Q6HP PRN PRN Reason: Nausea And Vomiting Metoprolol Tartrate (Metoprolol Tartrate 5 Mg/5 Ml Vial) 5 mg IV Q2HP PRN PRN Reason: Tachyarrhythmias HR>110 Ondansetron HCl (Ondansetron 4 Mg/2 Ml Vial) 4 mg IV Q4HP PRN PRN Reason: Nausea And Vomiting Polyethylene Glycol (Polyethylene Glycol 3350 17 Gm Packet) 17 gm PO DAILYP PRN PRN Reason: Constipation Potassium Chloride (Potassium Chloride 20 Meq Tablet) 40 meq PO UD PRN PRN Reason: Potssium is 3-3.5 Potassium Chloride (Potassium Chloride 20 Meq Tablet) 40 meq PO UD PRN PRN Reason: Potassium < 3 Promethazine HCl (Promethazine 25 Mg/Ml Vial) 12.5 mg IV Q6HP PRN PRN Reason: Nausea And Vomiting Senna (Sennosides 1 Tablet) 2 tab PO DAILYP PRN PRN Reason: Constipation Sodium Chloride (0.9 % Sodium Chloride 10 Ml Syringe) 10 ml IV Q8 [facility] Last Admin: 02/18/22 05:13 Dose: Not Given Documented by: Tamsulosin HCl (Tamsulosin 0.4 Mg Capsule) 0.4 mg PO HS [facility] Last Admin: 02/17/22 23:20 Dose: 0.4 mg Documented by: A/P Narrative A/P Narrative: A: *Acute on chronic hyponatremia: hypotonic hypovolemic -r/o adrenal insuff *Hypotension: Likely hypovolemic compounded by blood pressure medications, r/o adrenal *Volume depletion: *Urinary retention likely 2/2 BPH: Sorto placed in the ED *Generalized weakness/deconditioning/poor appetite: *Leukocytosis: Suspect reactive, rule out infectious -Afebrile, no bandemia, UA/CTA chest unremarkable -improved w/o abx, although pct elevated - f/u *h/o systolic(30-35%) CHF w/WMA and reduced RV systolic fxn: Follows with cardiology -does not appear decompensated *COPD (not on O2): Follows with Dr. Sandra *OSAw/cpap : *Oropharyngeal Dysphagia: is supposed to see ST in February *HTN: hypotension no admit, on Lopressor/losartan. monitor P: -gentle IVF, f/u sodium, monitor UOP/fluid balance closely -hyponatremia w/u pending -maintain sorto, Flomax started, follow-up with urology -Follow-up WBC and BC -hold home ARB/BB for low BP for now -check cortisol/TSH -dysphagia diet, ST eval -cont home cpap -PT/OT -ppx: Lovenox DNR - clarify Time Spent With Patient Time: Total time spent is greater than 50% in coordination of care (as documented) at patient's floor/unit and/or counseling patient: Total time spent with greater than 50% in coordination of care (as documented) at patient's floor/unit and/or counseling patient:: 25 - 35 minutes QUALITY VTE Deep Vein Thrombosis/Pulmonary Embolism Present on Admission: No
[2022-02-18] MEDS: SODIUM CHLORIDE 1 GM TABLET PO SCH ×3 (11:28→20:19)
[2022-02-18] MEDS: TAMSULOSIN 0.4 MG CAPSULE PO SCH (20:19)
--- NOTE | 2022-02-18 21:51 | EKG ---
[facility] Test Date: 2022-02-17 Pat Name: Tigre Maldonado Department: ED Room: Gender: Male Car Detailer: SANDI : 1950 Requested By: Valery Alvarez Order Number: [id number] Reading MD: Imelda Quinn D.O. Measurements Intervals [place] Rate: 61 P: [place]: QRS: -2 QRSD: 118 T: 6 QT: 419 QTc: 422 Interpretive Statements Atrial fibrillation Nonspecific intraventricular conduction delay Low voltage, extremity leads Electronically Signed On 02-18-2022 21:51:40 PDT by Imelda Quinn D.O. /store/[email or web address]/[id number]
[2022-02-19] MEDS: 0.9 % SODIUM CHLORIDE 10 ML SYRINGE IV SCH ×5 (05:20→20:23)
[2022-02-19] MEDS ORDERED: COSYNTROPIN 0.25 MG VIAL IV ONE (06:00)
[2022-02-19] MEDS: DOCUSATE SODIUM 100 MG CAPSULE PO SCH ×2 (08:12→20:20)
[2022-02-19] MEDS: FAMOTIDINE 20 MG TABLET PO SCH ×2 (08:13→20:20)
[2022-02-19] MEDS: ENOXAPARIN 40 MG/0.4 ML SYRINGE SQ SCH (08:13)
[2022-02-19 08:17] LABS: ALT/SGPT 13 U/L (<40); AST/SGOT 18 U/L (<40); Albumin 3.4 gm/dL (3.2-5.2); Albumin/Globulin Ratio 1.3 (1.0-2.3); Alkaline Phosphatase 89 U/L (39-117); Bilirubin,Direct 0.3 mg/dL (<0.3); Bilirubin,Total 1.1 mg/dL (0.1-1.0); Blood Urea Nitrogen 5 mg/dL (8-23); Calcium 8.4 mg/dL (8.6-10.4); Carbon Dioxide 20 mmol/L (22-30); Chloride 91 mmol/L (96-108); Globulin 2.7 gm/dL (2.2-3.7); Glomerular Filtration Rate 101; Glucose 90 mg/dL (70-105); Lactate Dehydrogenase 179 U/L (135-225); Phosphorous 2.6 mg/dL (2.5-4.5); Triglycerides 84 mg/dL (<150); Uric Acid 2.5 mg/dL (2.5-8.0)
[2022-02-19 08:20] LABS: Hematocrit 37.5 % (40.1-51.0); Hemoglobin 13.4 g/dL (13.7-17.5); Mean Cell Volume 86.8 fL (80.0-100.0); Mean Corpuscular HGB Conc 35.7 g/dL (31.0-36.0); Mean Platelet Volume 9.4 fL (7.4-10.4); Platelet Count 166 K/mcL (140-440); RBC 4.32 M/mcL (4.63-6.08); Red Cell Distribution Width 12.8 % (11.5-14.5); WBC 9.3 K/mcL (4.5-11.0)
--- NOTE | 2022-02-19 08:49 | Internal Med Progress Note ---
SUBJECTIVE Subjective Patient information: Note initiated : 02/19/22 at 8:46 am Service Date, if different from initiated Date: [] Patient: Tigre Maldonado 71 y/o M admitted on 02/17/22 for Weakness. Chief Complaint: [] Interval history: History of present illness: Mr. Maldonado is a 71 year old M Presents the ED from his PCPs office for generalized weakness and was found to be mildly hypotensive with nausea but no vomiting.RAMOS's with chronicity and chronic dyspnea. Blood pressure in ED was 87/60 initially. He has had decreased urine output. Mild lightheadedness. No bloody stools. Symptoms have been going on for several days, but says weakness over 1 month. A bladder scan for 750 cc in the ED and a Sorto catheter was placed. And Flomax started. He does have a history of hyponatremia in the 120s and here in the ED he was seem to be a little bit lower at 123. He has a leukocytosis of 16 but is afebrile. Denies coughing. Patient having persistent nausea. Elevated D-dimer, per verbal from ED physician CTA with no PE. Patient has a history of atrial fibrillation and is on a beta-janeen but is not on anticoagulation and states has been no discussion of anticoagulation. Patient has history of COPD not on O2 or IH's and obstructive sleep apnea with cpap and dysphagia as well as severe systolic heart failure and right heart failure and chronic shortness of breath. Urinalysis unremarkable for infection but with hyaline casts indicative for dehydration. 02/18 Patient still feels weak. Sodium essentially unchanged. Pending TSH and cortisol for further work-up. Leukocytosis improved without antibiotics although procalcitonin is elevated, follow-up. 02/19 ACTH stimulation test suboptimal response. We will start patient on 2 dose regimen per day of hydrocortisone. Sodium mildly lower. Will initiate free water fluid restriction. Leukocytosis resolved. Follow-up chemistry today. Entered endocrine work-up. Review of Systems: denies headache/fever/chills/nausea/vomiting/chest or abdominal pain/cough/dyspnea/diarrhea. Otherwise see above. Constitutional Vitals: Vital Signs Temp Pulse Resp BP Pulse Ox 97.8 F 74 16 127/84 91 02/19/22 06:45 02/19/22 06:45 02/19/22 06:45 02/19/22 06:45 02/19/22 06:45 Period Temp Pulse Resp BP Sys/Paul Pulse Ox Last 24 Hr 97.7 F-98.9 F 74-93 16-18 93-127/55-84 91-97 Intake and Output 02/18/22 02/19/22 02/19/22 21:59 05:59 13:59 Intake Total 1300 200 Output Total 625 1800 Balance 675 -1600 Weight 69.4 kg Intake & Output: Intake & Output 02/18/22 02/19/22 02/19/22 21:59 05:59 13:59 Intake Total 1300 200 Output Total 625 1800 Balance 675 -1600 Weight 69.4 kg Intake: Oral 1300 200 Output: Urine Catheter Amount 625 1800 Other: Meal Dinner Percent of Meal Consumed 50% Feeding Ability Independent Urine Appearance Clear Clear Uretheral (Sorto) Clear Urine Color Light Karime Bright Yellow Uretheral (Sorto) Bright Yellow # Bowel Movements 0 Exam: General: Alert, Awake, No acute Distress Eyes/N/T: EOMI, Head/Neck: neck supple, CV: Irregular irregular, No murmurs, Pulm: Clear b/l although very mildly diminished on right, no wheezing/rhonchi Abd: soft, nontender, +BS x4 Ext: no clubbing/cyanosis/edema Neuro: Alert, no focal deficits, moves all extremities, Skin: warm/dry OBJ DATA Labs CBC & Chem 7: 02/19/22 06:00 02/19/22 06:00 Labs: Abnormal Lab Results 02/19/22 02/19/22 02/19/22 06:00 06:00 06:00 WBC RBC Hgb Hct Neut % (Auto) Lymph % (Auto) Lymph # (Auto) [place] # (Auto) Seg Neutrophils % Lymphocytes % D-Dimer Sodium 122 L Chloride 91 L Carbon Dioxide 20 L BUN 5 L Creatinine 0.6 L Osmolality Calcium 8.4 L Phosphorus Total Bilirubin 1.1 H Direct Bilirubin 0.3 H NT-Pro-B Natriuret Pep Prostate Specific Ag Procalcitonin 0.26 H TSH Cortisol AM Sample 1.4 L Urine Appearance Urine Ketones Calcium Oxalate Crystal Hyaline Casts Urine Mucus 02/19/22 02/18/22 02/18/22 06:00 05:32 05:32 WBC RBC 4.32 L Hgb 13.4 L Hct 37.5 L Neut % (Auto) Lymph % (Auto) Lymph # (Auto) [place] # (Auto) Seg Neutrophils % Lymphocytes % D-Dimer Sodium 124 L Chloride 90 L Carbon Dioxide BUN Creatinine Osmolality Calcium 8.3 L Phosphorus 2.3 L Total Bilirubin 1.3 H Direct Bilirubin 0.4 H NT-Pro-B Natriuret Pep Prostate Specific Ag Procalcitonin 0.41 H TSH Cortisol AM Sample Urine Appearance Urine Ketones Calcium Oxalate Crystal Hyaline Casts Urine Mucus 02/18/22 02/18/22 02/18/22 05:32 05:25 05:25 WBC 12.6 H RBC 4.40 L Hgb 13.3 L Hct 38.5 L Neut % (Auto) Lymph % (Auto) Lymph # (Auto) [place] # (Auto) Seg Neutrophils % Lymphocytes % 54 H D-Dimer Sodium Chloride Carbon Dioxide BUN Creatinine Osmolality Calcium Phosphorus Total Bilirubin Direct Bilirubin NT-Pro-B Natriuret Pep Prostate Specific Ag Procalcitonin TSH 5.80 H Cortisol AM Sample 2.1 L Urine Appearance Urine Ketones Calcium Oxalate Crystal Hyaline Casts Urine Mucus 02/17/22 02/17/22 02/17/22 18:48 18:26 18:15 WBC 16.3 H RBC Hgb Hct Neut % (Auto) 33.3 L Lymph % (Auto) 56.1 H Lymph # (Auto) 9.16 H [place] # (Auto) 1.57 H Seg Neutrophils % Lymphocytes % D-Dimer 1.88 H Sodium 123 L Chloride 90 L Carbon Dioxide BUN Creatinine Osmolality Calcium Phosphorus Total Bilirubin 1.5 H Direct Bilirubin NT-Pro-B Natriuret Pep Prostate Specific Ag Procalcitonin TSH Cortisol AM Sample Urine Appearance Urine Ketones Calcium Oxalate Crystal Hyaline Casts Urine Mucus 02/17/22 02/17/22 02/17/22 17:32 17:32 16:58 WBC RBC Hgb Hct Neut % (Auto) Lymph % (Auto) Lymph # (Auto) [place] # (Auto) Seg Neutrophils % Lymphocytes % D-Dimer Sodium Chloride Carbon Dioxide BUN Creatinine Osmolality 261 L Calcium Phosphorus Total Bilirubin Direct Bilirubin NT-Pro-B Natriuret Pep Prostate Specific Ag Procalcitonin 0.54 H TSH Cortisol AM Sample Urine Appearance Hazy A Urine Ketones 5 A Calcium Oxalate Crystal Few A Hyaline Casts 5 H Urine Mucus Mod A 04/29/22 04/29/22 04/29/22 16:58 16:58 16:58 WBC 17.5 H RBC Hgb Hct Neut % (Auto) Lymph % (Auto) Lymph # (Auto) [place] # (Auto) Seg Neutrophils % 35 L Lymphocytes % 55 H D-Dimer Sodium Chloride Carbon Dioxide BUN Creatinine Osmolality Calcium Phosphorus Total Bilirubin Direct Bilirubin NT-Pro-B Natriuret Pep 2886.0 H Prostate Specific Ag 9.30 H Procalcitonin TSH Cortisol AM Sample Urine Appearance Urine Ketones Calcium Oxalate Crystal Hyaline Casts Urine Mucus Meds: Medications Acetaminophen (Acetaminophen 325 Mg Tablet) 650 mg PO Q6HP PRN; Protocol PRN Reason: Per Pain Protocol/Fever > 101 Last Admin: 02/18/22 08:11 Dose: 650 mg Documented by: Albuterol/Ipratropium (Ipratropium/Albuterol 3 Ml Ampul.Neb) 3 ml NEB Q4HP PRN PRN Reason: Shortness Of Breath Docusate Sodium (Docusate Sodium 100 Mg Capsule) 100 mg PO BID [facility] Last Admin: 02/19/22 08:12 Dose: 100 mg Documented by: Enoxaparin Sodium (Enoxaparin 40 Mg/0.4 Ml Syringe) 40 mg SQ DAILY [facility] Last Admin: 02/19/22 08:13 Dose: 40 mg Documented by: Famotidine (Famotidine 20 Mg Tablet) 20 mg PO BID [facility] Last Admin: 02/19/22 08:13 Dose: 20 mg Documented by: Potassium Chloride 40 meq/ (Dextrose) 520 mls @ 130 mls/hr IV UD PRN PRN Reason: Potassium < 3 Magnesium Sulfate (Magnesium Sulfate) 2 gm in 50 mls @ 50 mls/hr IV UD PRN PRN Reason: Magnesium </= 1.6 Metoclopramide HCl (Metoclopramide 10 Mg/2 Ml Vial) 10 mg IV Q6HP PRN PRN Reason: Nausea And Vomiting Metoprolol Tartrate (Metoprolol Tartrate 5 Mg/5 Ml Vial) 5 mg IV Q2HP PRN PRN Reason: Tachyarrhythmias HR>110 Ondansetron HCl (Ondansetron 4 Mg/2 Ml Vial) 4 mg IV Q4HP PRN PRN Reason: Nausea And Vomiting Last Admin: 02/19/22 08:22 Dose: 4 mg Documented by: Polyethylene Glycol (Polyethylene Glycol 3350 17 Gm Packet) 17 gm PO DAILYP PRN PRN Reason: Constipation Potassium Chloride (Potassium Chloride 20 Meq Tablet) 40 meq PO UD PRN PRN Reason: Potssium is 3-3.5 Potassium Chloride (Potassium Chloride 20 Meq Tablet) 40 meq PO UD PRN PRN Reason: Potassium < 3 Promethazine HCl (Promethazine 25 Mg/Ml Vial) 12.5 mg IV Q6HP PRN PRN Reason: Nausea And Vomiting Senna (Sennosides 1 Tablet) 2 tab PO DAILYP PRN PRN Reason: Constipation Sodium Chloride (0.9 % Sodium Chloride 10 Ml Syringe) 10 ml IV Q8 [facility] Last Admin: 02/19/22 08:26 Dose: 10 ml Documented by: Tamsulosin HCl (Tamsulosin 0.4 Mg Capsule) 0.4 mg PO HS [facility] Last Admin: 02/18/22 20:19 Dose: 0.4 mg Documented by: A/P Narrative A/P Narrative: A: *Adrenal Insufficiency: pending ACTH to determine secondary vs primary *Acute on chronic hyponatremia: hypotonic hypovolemic and 2/2 above -mildly worsened today *Hypotension: Likely hypovolemic compounded by blood pressure medications + Adrenal insufficiency -resolved *Volume depletion: improved *Urinary retention likely 2/2 BPH: Sorto placed in the ED *Generalized weakness/deconditioning/poor appetite: *Leukocytosis: Suspect reactive, Resolved w/o abx -Afebrile, no bandemia, UA/CTA chest unremarkable -improved w/o abx, although pct elevated but decreased w/o abx *h/o systolic(30-35%) CHF w/WMA and reduced RV systolic fxn: Follows with cardiology -does not appear decompensated *COPD (not on O2): Follows with Dr. Sandra *OSAw/cpap : *h/o Oropharyngeal Dysphagia: is supposed to see ST in February *HTN: hypotension no admit, on Lopressor/losartan. monitor P: -Hydrocortisone 2-dose daily regimen (final regimen when d/c'd is 10mg in AM and 5mg in afternoon) -free water fluid restrict -f/u sodium today, monitor UOP/fluid balance closely -maintain sorto, Flomax started, follow-up with urology -hold home ARB/BB for low BP for now -dysphagia diet, ST eval -cont home cpap -PT/OT -Pending send-out endocrine labs -f/u with Endocrinology -ppx: Lovenox DNR - clarify Time Spent With Patient Time: Total time spent is greater than 50% in coordination of care (as documented) at patient's floor/unit and/or counseling patient: Total time spent with greater than 50% in coordination of care (as documented) at patient's floor/unit and/or counseling patient:: 35 - 50 minutes QUALITY VTE Deep Vein Thrombosis/Pulmonary Embolism Present on Admission: No
[2022-02-19 08:56] LABS: Eosinophils % (Manual) 3 % (0-7); Lymphocytes % 63 % (15-49); Monocytes % (Manual) 8 % (1-12); Platelet Estimate NORMAL (Normal); RBC Morphology NORMAL (Normal); Segmented Neutrophils % 26 % (38-78)
[2022-02-19] MEDS ORDERED: SODIUM CHLORIDE 1 GM TABLET PO ONE (09:07)
[2022-02-19] MEDS: HYDROCORTISONE 10 MG TABLET PO SCH (09:46)
[2022-02-19 13:58] LABS: POC Calcium, Ionized 1.12 (1.16-1.32); POC Creatinine 0.6 (0.6-1.2); POC Potassium 4.1 (3.3-5.1)
[2022-02-19] MEDS ORDERED: HYDROCORTISONE 10 MG TABLET PO SCH (14:00)
[2022-02-19] MEDS ORDERED: METOPROLOL TARTRATE 25 MG TABLET PO SCH (16:05)
--- NOTE | 2022-02-19 16:09 | Discharge Summary ---
Discharge Provider Provider Patient information: Note initiated : 02/19/22 at 4:06 pm Service Date, if different from initiated Date: [] Patient: Tigre Maldonado 71 y/o M admitted on 02/17/22 for Weakness. Chief Complaint: [] Date of admission: 02/17/22 23:02 Discharge date: 02/20/22 Primary care physician: Gualberto Jacome MD Consults: 02/17/22 Consult to Physician [CONS] Stat Comment: Consulting Provider: Jason Cope Reason For Exam: Physician to Consult Discharge Meds Discharge Medications Home Medications multivitamin [Multiple Vitamins] 1 tab PO QAM 08/07/17 [History Confirmed 02/18/22 Last Taken 02/17/22 08:00] Roberdel's wort 300 mg tablet 300 mg PO BID tab 05/25/21 [History Confirmed 02/18/22 Last Taken 02/17/22 08:00] excedrin 1 tab PO PRN PRN 06/24/21 [History Confirmed 02/18/22 Last Taken 02/17/22 10:00] ibuprofen 200 mg PO PRN PRN 06/24/21 [History Confirmed 02/18/22 Last Taken 02/15/22 08:00] losartan 25 mg tablet 25 mg PO QDAY 08/23/21 [History Confirmed 02/18/22 Last Taken 02/17/22 08:00] hydrocortisone 10 mg tablet See Rx Instructions .ROUTE .COMPLEX #60 tab 02/19/22 [Rx Last Taken Unknown] metoprolol tartrate 25 mg tablet 12.5 mg PO BID #30 tab 02/19/22 [Rx Last Taken Unknown] tamsulosin 0.4 mg capsule (Flomax) 0.4 mg PO QHS #30 cap 02/19/22 [Rx Last Taken Unknown] COURSE Hospital Course Hospital course: Interval history: History of present illness: Mr. Maldonado is a 71 year old M Presents the ED from his PCPs office for generalized weakness and was found to be mildly hypotensive with nausea but no vomiting.RAMOS's with chronicity and chronic dyspnea. Blood pressure in ED was 87/60 initially. He has had decreased urine output. Mild lightheadedness. No bloody stools. Symptoms have been going on for several days, but says weakness over 1 month. A bladder scan for 750 cc in the ED and a Sorto catheter was placed. And Flomax started. He does have a history of hyponatremia in the 120s and here in the ED he was seem to be a little bit lower at 123. He has a leukocytosis of 16 but is afebrile. Denies coughing. Patient having persistent nausea. Elevated D-dimer, per verbal from ED physician CTA with no PE. Patient has a history of atrial fibrillation and is on a beta-janeen but is not on anticoagulation and states has been no discussion of anticoagulation. Patient has history of COPD not on O2 or IH's and obstructive sleep apnea with cpap and dysphagia as well as severe systolic heart failure and right heart failure and chronic shortness of breath. Urinalysis unremarkable for infection but with hyaline casts indicative for dehydration. 02/18 Patient still feels weak. Sodium essentially unchanged. Pending TSH and cortisol for further work-up. Leukocytosis improved without antibiotics although procalcitonin is elevated, follow-up. 02/19 ACTH stimulation test suboptimal response. We will start patient on 2 dose regimen per day of hydrocortisone. Sodium mildly lower. Will initiate free water fluid restriction. Leukocytosis resolved. Follow-up chemistry today. Entered endocrine work-up. 02/20 Patient feeling better. Hyponatremia improved. Stable to go home. A: *Adrenal Insufficiency: pending ACTH to determine secondary vs primary *Acute on chronic hyponatremia: hypotonic hypovolemic and 2/2 above *Hypotension: Likely hypovolemic compounded by blood pressure medications + Adrenal insufficiency *Volume depletion: improved *Urinary retention likely 2/2 BPH: Sorto placed in the ED *Generalized weakness/deconditioning/poor appetite: *Leukocytosis, no bandemia: Suspect reactive, Resolved w/o abx - UA/CTA chest unremarkable *h/o systolic(30-35%) CHF w/WMA and reduced RV systolic fxn: Follows with cardiology -does not appear decompensated *Permanent Afib: on BB but not on anticoagulation, follows with cardiology *COPD (not on O2): Follows with Dr. Sandra *OSAw/cpap : *h/o Oropharyngeal Dysphagia: is supposed to see ST in February *HTN: hypotension no admit, on Lopressor/losartan. monitor P: -Hydrocortisone 2-dose daily regimen (final regimen when d/c'd is 10mg in AM and 5mg in afternoon) -maintain sorto, Flomax started, follow-up with urology -dysphagia diet, ST kamlesh -Pending send-out endocrine labs -f/u with Endocrinology Discharge diagnosis: Adrenal insufficiency hyponatremia hypertension urinary retention Secondary discharge diagnosis: Volume depletion generalized weakness deconditioning history of heart failure A. fib COPD obstructive sleep apnea oropharyngeal dysphagia hypertension Time Spent with Patient Time attestation: Total time spent providing and/or coordinating discharge services: Time spent: Greater than 30 minutes EXAM Constitutional Vitals: Temp Pulse Resp BP Pulse Ox 97.3 F 76 20 130/83 94 02/19/22 15:57 02/19/22 15:57 02/19/22 15:57 02/19/22 15:57 02/19/22 15:57 Discharge Data Data Completed and Pending Labs on day of discharge: Labs from last 24 hours 02/19/22 02/19/22 02/19/22 13:56 07:18 06:30 WBC RBC Hgb Hct POC Hct 42.0 MCV MCH MCHC RDW Plt Count MPV Seg Neutrophils % Lymphocytes % Monocytes % (Manual) Eosinophils % (Manual) Platelet Estimate RBC Morphology POC Sodium 128 L Sodium POC Potassium 4.1 Potassium POC Chloride 96 Chloride Carbon Dioxide POC Total CO2 21.0 L Anion Gap POC BUN 6 BUN Creatinine POC Creatinine 0.6 GFR Calculation Glucose POC Glucose 121 H Uric Acid Calcium POC WB Ioniz Calcium 1.12 L Phosphorus Magnesium Total Bilirubin Direct Bilirubin GGT AST ALT Alkaline Phosphatase Lactate Dehydrogenase Total Protein Albumin Globulin Albumin/Globulin Ratio Triglycerides Renin Activity Aldosterone Pending Procalcitonin Random Cortisol 6.4 Cortisol AM Sample ACTH 02/19/22 02/19/22 02/19/22 06:00 06:00 06:00 WBC RBC Hgb Hct POC Hct MCV MCH MCHC RDW Plt Count MPV Seg Neutrophils % Lymphocytes % Monocytes % (Manual) Eosinophils % (Manual) Platelet Estimate RBC Morphology POC Sodium Sodium POC Potassium Potassium POC Chloride Chloride Carbon Dioxide POC Total CO2 Anion Gap POC BUN BUN Creatinine POC Creatinine GFR Calculation Glucose POC Glucose Uric Acid Calcium POC WB Ioniz Calcium Phosphorus Magnesium Total Bilirubin Direct Bilirubin GGT AST ALT Alkaline Phosphatase Lactate Dehydrogenase Total Protein Albumin Globulin Albumin/Globulin Ratio Triglycerides Renin Activity Pending Aldosterone Pending Procalcitonin Random Cortisol Cortisol AM Sample 1.4 L ACTH Pending 02/19/22 02/19/22 02/19/22 06:00 06:00 06:00 WBC 9.3 RBC 4.32 L Hgb 13.4 L Hct 37.5 L POC Hct MCV 86.8 MCH 31.0 MCHC 35.7 RDW 12.8 Plt Count 166 MPV 9.4 Seg Neutrophils % 26 L Lymphocytes % 63 H Monocytes % (Manual) 8 Eosinophils % (Manual) 3 Platelet Estimate Normal RBC Morphology Normal POC Sodium Sodium 122 L POC Potassium Potassium 4.0 POC Chloride Chloride 91 L Carbon Dioxide 20 L POC Total CO2 Anion Gap 11.0 POC BUN BUN 5 L Creatinine 0.6 L POC Creatinine GFR Calculation 101 Glucose 90 POC Glucose Uric Acid 2.5 Calcium 8.4 L POC WB Ioniz Calcium Phosphorus 2.6 Magnesium 2.0 Total Bilirubin 1.1 H Direct Bilirubin 0.3 H GGT 23 AST 18 ALT 13 Alkaline Phosphatase 89 Lactate Dehydrogenase 179 Total Protein 6.1 Albumin 3.4 Globulin 2.7 Albumin/Globulin Ratio 1.3 Triglycerides 84 Renin Activity Aldosterone Procalcitonin 0.26 H Random Cortisol Cortisol AM Sample ACTH Preliminary micro results at discharge 02/17/22 23:56 Blood Culture - Preliminary Blood 02/17/22 23:44 Blood Culture - Preliminary Blood Discharge Plan Patient/Caregiver Discharge Instructions Activity: increase activity as tolerated Diet: Regular Diet, Dysphagia Level 6 Soft & Bite-Sized Foods and Thickened Liquids Instructions: Farhat Disease (DC) Activity Restrictions/Additional Instructions: referral to see urology 3-10 days if unable to remove sorto while inpt. Referral to see endocrinology for adrenal insufficiency 1 to 2 weeks. f/u speech therapy for dysphagia evaluation Prescriptions: New hydrocortisone 10 mg Tablet See Rx Instructions .ROUTE .COMPLEX Qty: 60 0RF Rx Instructions: Take 10mg in the morning and 5mg in the afternoon 2-hours after lunch. tamsulosin [Flomax] 0.4 mg capsule 0.4 mg PO QHS Qty: 30 0RF Continued multivitamin 1 tab PO QAM 0RF ibuprofen 200 mg PO PRN PRN (Reason: Muscle Pain) 0RF excedrin tablet 1 tab PO PRN PRN (Reason: Headache) 0RF Rx Instructions: 500mg PO; losartan 25 mg tablet 25 mg PO QDAY 0RF Rx Instructions: 1/2 tablet po qd Keke's wort 300 mg tablet 300 mg PO BID 0RF Changed metoprolol tartrate 25 mg tablet 12.5 mg PO BID Qty: 30 0RF Follow Up Plan Follow up with: Gualberto Jacome MD [Primary Care Provider] - Patient Disposition: Home, Self-Care Prognosis: Fair Overall status at discharge: patient is progressing back to baseline Discharge Orders: Discharge Order (Routine); Ordered 02/20/22 [facility] Deep [facility]in Thrombosis/Pulmonary Embolism Present on Admission: No
[2022-02-19] MEDS: METOPROLOL TARTRATE 5 MG/5 ML VIAL IV PRN (16:12)
[2022-02-19] MEDS: METOPROLOL TARTRATE 25 MG TABLET PO SCH ×2 (17:20→20:20)
[2022-02-19] MEDS: TAMSULOSIN 0.4 MG CAPSULE PO SCH (20:19)
[2022-02-20] MEDS: METOPROLOL TARTRATE 5 MG/5 ML VIAL IV PRN (02:54)
[2022-02-20] MEDS: 0.9 % SODIUM CHLORIDE 10 ML SYRINGE IV SCH (05:57)
[2022-02-20 07:03] LABS: Blood Urea Nitrogen 7 mg/dL (8-23); Calcium 9.2 mg/dL (8.6-10.4); Carbon Dioxide 25 mmol/L (22-30); Chloride 98 mmol/L (96-108); Glomerular Filtration Rate 89; Glucose 101 mg/dL (70-105)
[2022-02-20] MEDS: METOPROLOL TARTRATE 25 MG TABLET PO SCH (08:05)
[2022-02-20] MEDS: ENOXAPARIN 40 MG/0.4 ML SYRINGE SQ SCH (08:06)
[2022-02-20] MEDS: FAMOTIDINE 20 MG TABLET PO SCH (08:06)
[2022-02-20] MEDS: DOCUSATE SODIUM 100 MG CAPSULE PO SCH (08:06)
[2022-02-20] MEDS: HYDROCORTISONE 10 MG TABLET PO SCH (08:08)
--- NOTE | 2022-02-20 09:24 | EKG ---
Merged With [facility] Test Date: 2022-02-19 Pat Name: Tigre Maldonado Department: [facility] Room: 126 Gender: Male [employer] Grader: : 1950 Requested By: Jason Cope Order Number: [id number] Reading MD: Leon Mazariegos M.D. Measurements Intervals [place] Rate: 123 P: [place]: QRS: -5 QRSD: 113 T: QT: 306 QTc: 438 Interpretive Statements ATRIAL FIBRILLATION WITH RAPID V-RATE Multiple PVCs Electronically Signed On 02-20-2022 9:23:32 PDT by Leon Mazariegos M.D. /[id number]/[id number]
[2022-02-23 17:57] LABS: Renin Activity,Plasma-SO 1.32 ng/mL/h (0.25-5.82)
== END 2022-02-20 14:25 | disposition home or self-care (01) | DRG 644 ==
LOC: ED 16:30 → MEDSUR 23:02
PROVIDERS: ADMIT Internal Medicine; ATTEND Internal Medicine